=== PATIENT | female | born 1955 | race Caucasian/White ===

== ENCOUNTER → 2020-08-26 10:16 | Outpatient (CLI) | payer MEDICARE, OTHER, SELFPAY ==
--- NOTE | ~2020-08-26 | MM_ITS ---
EXAMINATION: MM screening gael BI w benton HISTORY: Screening TECHNIQUE: Craniocaudal and mediolateral oblique 3-D tomosynthesis images were obtained and synthetic 2-D images were generated. CAD analysis was submitted and interpreted. COMPARISON: . Comparison to multiple prior studies sequentially, with oldest reviewed study dated . BREAST PARENCHYMAL COMPOSITION: There are scattered areas of fibroglandular density. FINDINGS: There is no evidence of suspicious mass, calcification, or architectural distortion to sugg est malignancy in either breast. There has been no suspicious interval change. IMPRESSION: 1. No mammographic evidence of malignancy. 2. Recommend routine screening mammography in one year. BI-RADS Category 1: Negative Reviewed, dictated and finalized at location A. GE MECHANIC
== END ==
PROVIDERS: PCP Internal Medicine; Visit Provider Obstetrics & Gynecology
DX: Z12.31 Encounter for screening mammogram for malignant neoplasm of breast (principal)
CPT/HCPCS: 77063; 77067

== ENCOUNTER → 2021-08-30 10:14 | Outpatient (CLI) | payer MEDICARE, OTHER, SELFPAY ==
--- NOTE | ~2021-08-30 | MM_ITS ---
EXAMINATION: MM screening gael BI w benton HISTORY: Screening TECHNIQUE: Craniocaudal and mediolateral oblique 3-D tomosynthesis images were obtained and synthetic 2-D images were generated. CAD analysis was submitted and interpreted. COMPARISON: Comparison to multiple prior studies sequentially, with oldest reviewed study dated 08/10. BREAST PARENCHYMAL COMPOSITION: Breast composed of scattered areas of fibroglandular density. FINDINGS: There is no evidence of suspicious mass, calcification, or architectural distortion to sugg est malignancy in either breast. There has been no suspicious interval change. IMPRESSION: 1. No mammographic evidence of malignancy. 2. Recommend routine screening mammography in one year. BI-RADS Category 1: Negative Reviewed, dictated and finalized at location A. EMIC TUTOR
== END ==
PROVIDERS: PCP Internal Medicine; Visit Provider Advanced Practice Midwife
DX: Z12.31 Encounter for screening mammogram for malignant neoplasm of breast (principal)
CPT/HCPCS: 77063; 77067

== ENCOUNTER → 2021-09-29 10:00 | Outpatient (CLI) | payer MEDICARE, OTHER, SELFPAY ==
--- NOTE | ~2021-09-29 | DEXA_ITS ---
Bone Density Report Name: JYOTI ANDERSON Age: 66 Sex: Female Ethnicity: White Date of : 1955 Indication: postmenopausal; screening for osteoporosis; height loss; Referring Provider: Jen Malik Study: Bone densitometry was performed. Exam Date: September 29, 2021 Accession number: [id number] Bone Density: Region BMD T-score Z-score Classification AP Spine (L1-L4) 1.275 2.1 4.0 Normal Femoral Neck (Left) 0.726 -1.1 0.5 Osteopenia Total Hip (Left) 0.824 -1.0 0.4 Normal Femoral Neck (Right) 0.720 -1.2 0.5 Osteopenia Total Hip (Right) 0.883 -0.5 0.9 Normal Total Hip Mean 0.854 -0.8 0.7 Normal World Health Organization criteria for BMD impression classify patients as: Normal (T-score at or above -1.0), Osteopenia (T-score between -1.0 and -2.5), or Osteoporosis (T-score at or below -2.5). 10-year Fracture Risk(1): Major Osteoporotic Fracture 8.7% Hip Fracture 0.8% Reported Risk Factors: [place] (), Neck BMD=0.720, BMI=28.4 (1) FRAX(R) Version 3.08. Fracture probability calculated for an untreated patient. Fracture probability may be lower if the patient has received treatment. Previous Exams: Region Exam Age BMD T-score BMD Change BMD Change Date g/cm2 vs Baseline vs Previous AP Spine(L1-L4) 09/29/2021 66 1.275 2.1 0.076 0.118* 07/04/2014 59 1.157 1.0 -0.042 0.032* 04/20/2012 56 1.125 0.7 -0.074 0.066* 04/09/2010 54 1.059 0.1 -0.140 -0.081* 03/06/2007 51 1.140 0.8 -0.058 -0.058 02/15/2004 48 1.199 1.4 Total Hip(Left) 09/29/2021 66 0.824 -1.0 -0.179 -0.004 07/04/2014 59 0.829 -0.9 -0.175 -0.065* 04/20/2012 56 0.894 -0.4 -0.110 -0.012 04/09/2010 54 0.906 -0.3 -0.098 0.017 03/06/2007 51 0.888 -0.4 -0.115 -0.115 02/15/2004 48 1.003 0.5 Total Hip(Right) 09/29/2021 66 0.883 -0.5 -0.070 -0.014 07/04/2014 59 0.898 -0.4 -0.056 -0.009 04/20/2012 56 0.907 -0.3 -0.047 -0.033* 04/09/2010 54 0.940 0.0 -0.014 0.000 03/06/2007 51 0.940 0.0 -0.014 -0.014 02/15/2004 48 0.953 0.1 *Denotes significance at 95% confidence level, LSC for AP Spine = 0.022 g/cm2, LSC for Total Hip = 0.027 g/cm2 Clinical Information Provided by Patient:
== END ==
PROVIDERS: PCP Internal Medicine; Visit Provider Advanced Practice Midwife
DX: M81.0 Age-related osteoporosis without current pathological fracture (principal); M85.852 Other specified disorders of bone density and structure, left thigh; M85.851 Other specified disorders of bone density and structure, right thigh
CPT/HCPCS: 77080

== ENCOUNTER 2022-04-10 02:45 | Day surgery (SDC) | payer MEDICARE, OTHER, SELFPAY ==
[2022-03-28 12:20] VITALS: BMI 27.3
--- NOTE | 2022-04-07 15:29 | PM.HPGS ---
History of Present Illness History of Present Illness Consent: Risks, benefits, and alternatives have been discussed and questions answered. Patient agrees to proceed with procedure. Chief complaint: Family hx colon ca Narrative: Tigist Stein is a 66 year old female Referred for colon cancer screening. Her mother had colon cancer. Review of Systems Review of Systems: All systems reviewed & are unremarkable except as noted in HPI and below PMFSH Past Medical History Medical History Hyperlipidemia Family History Family History Father Depression Family history of chronic obstructive pulmonary disease Mother Family history of gastrointestinal disorder, Onset Age: 72 Family history of anemia, Onset Age: 72 Carcinoma of colon, Onset Age: 72 Social History Social History Smoking status: Never smoker Second hand tobacco smoke exposure: No Alcohol intake: current Drinks per week: 1 Substance use: never Substance use type: does not use Living arrangements: other Additional living arrangements comments: With Spouse Meds Home Medications and Allergies Home Medications Medication Instructions Recorded Confirmed Type calcium citrate 315 mg 1 tablet PO DAILY 10/02/19 04/10/22 History calcium-vitamin D3 6.25 mcg (250 unit) tablet (Citracal + Vitamin D Maximum) omega-3 fatty acids 1,000 mg 1,000 mg PO DAILY 10/02/19 04/10/22 History capsule simvastatin 20 mg tablet 20 mg PO DAILY #90 tabs 09/07/21 04/10/22 Rx cholecalciferol (vitamin D3) 25 25 mcg PO DAILY 10/10/21 04/10/22 History mcg (1,000 unit) capsule netarsudil 0.02 % eye drops 1 drp EACH EYE QPM 12/27/21 04/10/22 History (Rhopressa) triamcinolone acetonide 0.1 % 1 applic topical BID PRN Dry Skin 03/28/22 04/10/22 History topical cream Allergies Allergy/AdvReac Type Severity Reaction Status Date / Time Penicillins Allergy Severe RASH, HIVES Verified 04/10/22 08:02 red dye Allergy Severe HIVES/ITCHI Verified 04/10/22 08:02 NG Sulfa (Sulfonamide Allergy Severe RASH, HIVES Verified 04/10/22 08:02 Antibiotics) thimerosal Allergy Intermediate Other Verified 04/10/22 08:02 Exam Resp: Auscultation: clear to auscultation bilaterally Cardio: Rate: regular rate Rhythm: regular rhythm GI: GI Palp: Yes Soft to palpation and No Tenderness to palpation present (GI) Assessment and Plan Assessment and plan (1) Colon cancer screening: Code(s): Z12.11 - Encounter for screening for malignant neoplasm of colon Status: Acute Assessment and Plan: Colonoscopy with possible biopsy or polypectomy or cautery or injection of substances.
--- NOTE | 2022-04-10 07:46 | P.PNAN_ITS ---
Anes - Initial Pre Proc Eval Procedure: Operation Date: 04/10/22 09:00 Proposed Procedures p Screening Colonoscopy - Malick Ruiz MD Date/Time: 04/10/22 07:46 Surgeon: Malick Ruiz MD Pre Op Diagnosis: Family hx colon ca Patient Data Age: 66 Gender: F Height: 1.57 m Weight: 68 kg Allergies Allergy/AdvReac Type Severity Reaction Status Date / Time Penicillins Allergy Severe RASH, HIVES Verified 04/10/22 08:02 red dye Allergy Severe HIVES/ITCHI Verified 04/10/22 08:02 NG Sulfa (Sulfonamide Allergy Severe RASH, HIVES Verified 04/10/22 08:02 Antibiotics) thimerosal Allergy Intermediate Other Verified 04/10/22 08:02 Home Medications Medication Instructions Recorded Confirmed Type calcium citrate 315 mg 1 tablet PO DAILY 10/02/19 04/10/22 History calcium-vitamin D3 6.25 mcg (250 unit) tablet (Citracal + Vitamin D Maximum) omega-3 fatty acids 1,000 mg 1,000 mg PO DAILY 10/02/19 04/10/22 History capsule simvastatin 20 mg tablet 20 mg PO DAILY #90 tabs 09/07/21 04/10/22 Rx cholecalciferol (vitamin D3) 25 25 mcg PO DAILY 10/10/21 04/10/22 History mcg (1,000 unit) capsule netarsudil 0.02 % eye drops 1 drp EACH EYE QPM 12/27/21 04/10/22 History (Rhopressa) triamcinolone acetonide 0.1 % 1 applic topical BID PRN Dry Skin 03/28/22 04/10/22 History topical cream Patient hx anesthesia problems: none Family hx anesthesia problems: none Results Review: All pre-operative results and documents have been reviewed as part of the pre- operative evaluation. [facility] Past Medical History Medical History Hyperlipidemia Family History Family History Father Depression Family history of chronic obstructive pulmonary disease Mother Family history of gastrointestinal disorder, Onset Age: 72 Family history of anemia, Onset Age: 72 Carcinoma of colon, Onset Age: 72 Social History Social History Smoking status: Never smoker Second hand tobacco smoke exposure: No Alcohol intake: current Drinks per week: 1 Substance use: never Substance use type: does not use Living arrangements: other Additional living arrangements comments: With Spouse Du Jorge Final PreProcedure Day of Procedure 04/10/22 07:46 Patient weight: overweight Heart: regular rate and rhythm Lungs: clear to auscultation Airway: Mallampati scale class II Neurological: alert and oriented Last oral intake: >/= 8 hours ASA classification: II Emergent: no Anesthetic plan: proceed Anesthesia type and monitoring: general GIVS and standard monitoring Results Review: All pre-operative results and documents have been reviewed as part of the pre- operative evaluation. Informed Consent: The patient's anesthetic plan and its attendant risks and benefits were discussed with the patient/family/POA. Questions were solicited and answers provided to the satisfaction of the patient/family/POA.
[2022-04-10 08:03] VITALS: BP 114/69; PULSE 96; RESP 16; TEMP 36.3; O2SAT 98; BMI 27.3
[2022-04-10] MEDS: LACTATED RINGERS 1,000 ML 150 ML IV CONT (08:11)
[2022-04-10 09:17] VITALS: BP 97/63; PULSE 72; RESP 16; O2SAT 100
[2022-04-10 09:27] VITALS: BP 102/64; PULSE 67; RESP 16; O2SAT 99
[2022-04-10 09:36] VITALS: BP 112/68; PULSE 64; RESP 16; O2SAT 100
== END 2022-04-10 09:50 | disposition home or self-care (01) ==
PROVIDERS: PCP Internal Medicine; Visit Provider Internal Medicine Gastroenterology
PROC: 0DJD8ZZ Inspection of Lower Intestinal Tract, Via Natural or Artificial Opening Endoscopic (ICD-10-PCS; CPT 45378; principal; 2022-04-10 09:00)
DX: Z12.11 Encounter for screening for malignant neoplasm of colon (principal); Z80.0 Family history of malignant neoplasm of digestive organs; E78.5 Hyperlipidemia, unspecified
CPT/HCPCS: G0105; J2704; J7120

== ENCOUNTER → 2022-11-10 15:18 | Outpatient (CLI) | payer MEDICARE, OTHER, SELFPAY ==
--- NOTE | ~2022-11-10 | MM_ITS ---
EXAMINATION: MM screening gael BI w benton HISTORY: Screening mammogram TECHNIQUE: Craniocaudal and mediolateral oblique 3-D tomosynthesis images were obtained and synthetic 2-D images were generated. CAD analysis was submitted and interpreted. COMPARISON: August 30, 2021, August 26, 2020, August 08, 2019 bilateral screening mammogram examin ations BREAST PARENCHYMAL COMPOSITION: There are scattered areas of fibroglandular density. FINDINGS: There is no evidence of suspicious mass, calcification, or architectural distortion to sugg est malignancy in either breast. There has been no suspicious interval change. IMPRESSION: 1. No mammographic evidence of malignancy. 2. Recommend routine screening mammography in one year. BI-RADS Category 1: Negative Reviewed, dictated and finalized at location A.
== END ==
PROVIDERS: PCP Internal Medicine; Visit Provider Obstetrics & Gynecology
DX: Z12.31 Encounter for screening mammogram for malignant neoplasm of breast (principal)
CPT/HCPCS: 77063; 77067

== ENCOUNTER 2023-05-19 10:21 | Emergency (ER) | payer MEDICARE, OTHER, SELFPAY ==
--- NOTE | ~2023-05-19 | XR_ITS ---
XR hip RT min 2V 05/19/2023 11:51 Indication: Right hip pain Procedure: 3 views right hip Comparison: No prior studies for comparison. Findings: No fracture, subluxation or dislocation. No significant soft tissue abnormality. There is l oose body inferior to the joint space, likely degenerative. There is mild osteoarthritis of the right hip. Impression: 1: Mild osteoarthritis of the right hip. Reviewed, dictated and finalized at location A. Impression: 1: Mild osteoarthritis of the right hip.
--- NOTE | ~2023-05-19 | XR_ITS ---
XR lumbar spine 2-3V 05/19/2023 11:51 Indication: Low back pain Procedure: 3 views lumbar spine Comparison: No prior studies for comparison. Findings: There is levoscoliosis. There is disc narrowing at L3-4 through L5-S1. There is advanced fa cet hypertrophy at these levels. There is grade 1 spondylolisthesis at L5-S1. Sacral foramen are symm etric. Impression: 1: Severe lumbar spondylosis with levoscoliosis. Reviewed, dictated and finalized at location A. Impression: 1: Severe lumbar spondylosis with levoscoliosis.
[2023-05-19 10:46] VITALS: BP 106/65; PULSE 105; RESP 20; TEMP 36.4; O2SAT 99
--- NOTE | 2023-05-19 11:06 | ED.BACK ---
HPI - Back Pain/Injury General Chief Complaint: Back Pain/Injury Stated Complaint: Lower Back and Groin Pain Time Seen by Provider: 05/19/23 11:09 Source: patient Mode of arrival: ambulatory Limitations: no limitations History of Present Illness HPI Narrative: 67-year-old female presented for complaint of right low back and groin pain intermittently for 1 month. Denies known injury. She is active gardening and walking dogs but denies specific overuse. The pain to the groin and low back is not always concurrent. States today the pain was worse when trying to stand to put on her socks. Also cannot tolerate standing for long period of time. She denies pain radiating to the foot. She denies numbness, tingling, weakness of the extremity. Reports with size, heat, and going to the bathroom have improved the pain. Related Data Home Medications Medication Instructions Recorded Confirmed calcium citrate 315 mg 1 tablet PO DAILY 10/02/19 05/19/23 calcium-vitamin D3 6.25 mcg (250 unit) tablet (Citracal + Vitamin D Maximum) omega-3 fatty acids 1,000 mg 1,000 mg PO DAILY 10/02/19 05/19/23 capsule cholecalciferol (vitamin D3) 25 25 mcg PO DAILY 10/10/21 05/19/23 mcg (1,000 unit) capsule triamcinolone acetonide 0.1 % 1 applic topical BID PRN Dry Skin 03/28/22 05/19/23 topical cream latanoprost 0.005 % eye drops 1 drp EACH EYE DAILY 10/13/22 05/19/23 multivitamin 1 tablet PO DAILY 10/13/22 05/19/23 brimonidine 0.15 % eye drops 2 drp EACH EYE DAILY 05/19/23 05/19/23 (Alphagan P) Allergies Allergy/AdvReac Type Severity Reaction Status Date / Time Penicillins AdvReac Mild RASH, HIVES Verified 05/19/23 10:34 red dye AdvReac Mild HIVES/ITCHI Verified 05/19/23 10:34 NG Sulfa (Sulfonamide AdvReac Mild RASH, HIVES Verified 05/19/23 10:34 Antibiotics) thimerosal AdvReac Mild Itching Verified 05/19/23 10:34 Review of Systems Review of Systems: CONSTITUTIONAL: Denies body aches, fever, chills EYES: Denies visual changes CARDIOVASCULAR: Denies chest pain, palpitations, or edema. RESPIRATORY: Denies cough or dyspnea. GASTROINTESTINAL: Denies abdominal pain, nausea, vomiting, or diarrhea. SKIN: Denies rash, itching, or wounds. MUSCULOSKELETAL: reports back pain NEUROLOGIC: Denies headache, numbness, tingling, or weakness. All systems reviewed & are unremarkable except as noted in HPI and below PMFSH Past Medical History Medical History Hyperlipidemia Family History Family History Father Depression Family history of chronic obstructive pulmonary disease Mother Family history of gastrointestinal disorder, Onset Age: 72 Family history of anemia, Onset Age: 72 Carcinoma of colon, Onset Age: 71 Social History Social History Smoking status: Never smoker Second hand tobacco smoke exposure: No Alcohol intake: current Drinks per week: 1 Substance use: never Substance use type: does not use Lack of Transportation: No Lack of Food: Never True Current Housing: I Have Housing Concerned About Future Housing: No Difficulty Paying Gas/Electric Bills: No Difficulty Paying for Meds: No Currently Unemployed: No Education: Master's Degree or Higher Difficulty w/ Childcare or Family Care: No Living arrangements: other Additional living arrangements comments: With Spouse Comments At time of signature, I have reviewed and agree with nursing past medical, surgical, social and family history unless otherwise noted. Please see nursing chart for further information. There is no relevant family history pertinent to the presenting complaint Exam Narrative: GENERAL: Well-appearing, and in no acute distress. NECK: Supple. full ROM CHEST: Speaks in full sentences. No respiratory distress. HEART: Regular
== END 2023-05-19 12:20 | disposition home or self-care (01) ==
PROVIDERS: Emergency Provider Nurse Practitioner Family; PCP Internal Medicine
DX: M54.50 Low back pain, unspecified (principal); E78.5 Hyperlipidemia, unspecified
CPT/HCPCS: 72100; 73502; 99214; G0463

== ENCOUNTER 2023-05-27 20:55 | Emergency (ER) | payer MEDICARE, OTHER, SELFPAY ==
--- NOTE | ~2023-05-27 | CT_ITS ---
EXAMINATION: CT lumbar spine wo con DATE: 05/27/2023 22:35 INDICATION: Low back pain. TECHNIQUE: Computed tomography (CT) of the lumbar spine was performed without intravenous contrast. A utomated exposure control and iterative reconstruction technique were employed. The dose-length produ ct was 766.20 mGy-cm. COMPARISON: Lumbar spine radiographs 05/19/23 FINDINGS: There is 10 degrees levoscoliosis of lumbar spine. L5 is a transitional segment. There is 3 mm anterolisthesis of L3 on L4 and 6 mm anterolisthesis of L4 on L5. Vertebral body heights are norm al. There is mildly decreased disc height at L1-L2, severely decreased disc height at L2-L3 and L3-L4 , moderately decreased disc height at L4-L5. The following disc levels are specifically discussed: L1-L2: The disc is bulging. There is severe right and moderate left facet joint osteoarthritis. There is moderate right and mild left neural foraminal stenosis. There is mild central canal stenosis. L2-L3: The disc is bulging. There is severe bilateral facet joint osteoarthritis. There is moderate r ight and mild left neural foraminal stenosis. There is mild central canal stenosis. L3-L4: The disc is bulging. There is severe bilateral facet joint osteoarthritis. There is moderate b ilateral neural foraminal stenosis. There is moderate central canal stenosis. L4-L5: This is bulging. There is severe bilateral facet joint osteoarthritis. There is mild bilateral neural foraminal stenosis. There is mild central canal stenosis. L5-S1: The disc does not extend beyond the endplate margin. There is mild bilateral facet joint hyper trophy. There is no neural foraminal stenosis. There is no central canal stenosis. IMPRESSION: 1. Severe lumbar spondylosis. 2. Lumbar levoscoliosis. Reviewed, dictated and finalized at location E.
[2023-05-27 21:03] VITALS: BP 150/89; PULSE 117; RESP 20; TEMP 36.4; O2SAT 97
--- NOTE | 2023-05-27 22:20 | ED.EXTPRO ---
HPI - Extremity Problem General Chief complaint: Extremity Problem,Nontraumatic Stated complaint: Right left leg pain Time Seen by Provider: 05/27/23 21:10 History of Present Illness HPI Narrative: Patient presents to the emergency department with her with severe right low back pain that radiates into the anterior aspect of her right leg. She has a history of right low back pain but nothing this severe. Pain became worse and radiating down last week. Was seen at urgent care and started on Flexeril. Patient has been out of Flexeril for the past couple days. It was helping. Tonight pain is severe and she can barely sit. Denies right leg weakness but it is difficult to ambulate when pain is severe. Also denies any urinary or stool incontinence. X-rays from urgent care read by myself and show spondylosis without any signs of fracture. She denies any fevers and had single episode of chills yesterday when switching from heating pad to bed Related Data Home Medications Medication Instructions Recorded Confirmed calcium citrate 315 mg 1 tablet PO DAILY 10/02/19 05/19/23 calcium-vitamin D3 6.25 mcg (250 unit) tablet (Citracal + Vitamin D Maximum) omega-3 fatty acids 1,000 mg 1,000 mg PO DAILY 10/02/19 05/19/23 capsule cholecalciferol (vitamin D3) 25 25 mcg PO DAILY 10/10/21 05/19/23 mcg (1,000 unit) capsule triamcinolone acetonide 0.1 % 1 applic topical BID PRN Dry Skin 03/28/22 05/19/23 topical cream latanoprost 0.005 % eye drops 1 drp EACH EYE DAILY 10/13/22 05/19/23 multivitamin 1 tablet PO DAILY 10/13/22 05/19/23 brimonidine 0.15 % eye drops 2 drp EACH EYE DAILY 05/19/23 05/19/23 (Alphagan P) Allergies Allergy/AdvReac Type Severity Reaction Status Date / Time Penicillins AdvReac Mild RASH, HIVES Verified 05/27/23 21:08 red dye AdvReac Mild HIVES/ITCHI Verified 05/27/23 21:08 NG Sulfa (Sulfonamide AdvReac Mild RASH, HIVES Verified 05/27/23 21:08 Antibiotics) thimerosal AdvReac Mild Itching Verified 05/27/23 21:08 Review of Systems Review of Systems: Review of systems negative except what is documented in the [facility] Past Medical History Medical History Hyperlipidemia Family History Family History Father Depression Family history of chronic obstructive pulmonary disease Mother Family history of gastrointestinal disorder, Onset Age: 72 Family history of anemia, Onset Age: 72 Carcinoma of colon, Onset Age: 71 Social History Social History Smoking status: Never smoker Second hand tobacco smoke exposure: No Alcohol intake: current Drinks per week: 1 Substance use: never Substance use type: does not use Lack of Transportation: No Lack of Food: Never True Current Housing: I Have Housing Concerned About Future Housing: No Difficulty Paying Gas/Electric Bills: No Difficulty Paying for Meds: No Currently Unemployed: No Education: Master's Degree or Higher Difficulty w/ Childcare or Family Care: No Living arrangements: other Additional living arrangements comments: With Spouse Exam Narrative: GENERAL: Well-appearing, well-nourished, and in no acute distress. Patient develops acute pain with movement HEAD: Normocephalic, atraumatic. ENT: Nares clear, no rhinorrhea or epistaxis. Mucous membranes moist. NECK: Normal ROM CHEST: No respiratory distress. EXTREMITIES: Normal range of motion - decreased range of motion right leg due to pain after pain medication -strength 5/5 bilateral lower extremities SKIN: Warm, dry, no rash. NEURO: No focal deficits. Alert and oriented x3. PSYCH: Normal mood and affect. Course Vital Signs Vital signs: Vital Signs Temperature 36.4 C 05/27/23 21:03 Pulse Rate 117 H 05/27/23 21:03 Respiratory Rate 20
[2023-05-27] MEDS: HYDROcodone/acetaminophen (*CRX) 5-325 MG TABLET 1 TAB PO (22:43)
[2023-05-27] MEDS: CYCLOBENZAPRINE HCL 10 MG TABLET PO (22:44)
[2023-05-27] MEDS: KETOROLAC 30 MG/ML VIAL (*BKC) IM (22:44)
== END 2023-05-28 00:37 | disposition home or self-care (01) ==
PROVIDERS: Emergency Provider Emergency Medicine; PCP Internal Medicine
DX: M43.16 Spondylolisthesis, lumbar region (principal); M54.41 Lumbago with sciatica, right side; E78.5 Hyperlipidemia, unspecified
CPT/HCPCS: 72131; 96372; 99284; A9270; J1885

== ENCOUNTER 2023-06-07 15:21 | Outpatient (CLI) | payer MEDICARE, OTHER, SELFPAY ==
--- NOTE | ~2023-06-07 | MR_ITS ---
EXAMINATION: MR lumbar spine wo con DATE: 06/07/2023 16:14 INDICATION: Back pain. TECHNIQUE: Magnetic resonance imaging (MRI) of the lumbar spine was performed without intravenous con trast. COMPARISON: Lumbar spine CT 05/27/2023 FINDINGS: There is 10 degrees levoscoliosis of lumbar spine. There is 3 mm anterolisthesis of L4 on L 5 and 6 mm anterolisthesis of L5 on S1. Vertebral body heights are normal. There is severely decrease d disc height at L3-L4 and L4-L5 and moderately decreased disc height at L5-S1. The distal spinal cor d signal intensity is normal. The conus medullaris is at L1. The following disc levels are specifical ly discussed: L1-L2: There is a central protrusion. There is moderate bilateral facet joint osteoarthritis. There i s no neural foraminal stenosis. There is mild central canal stenosis. L2-L3: The disc is bulging. There is severe bilateral facet joint osteoarthritis. There is moderate r ight and mild left neural foraminal stenosis. There is mild central canal stenosis. L3-L4: The disc is bulging. There is severe bilateral facet joint osteoarthritis. There is moderate r ight and mild left neural foraminal stenosis. There is mild central canal stenosis. L4-L5: The disc is bulging. There is severe bilateral facet joint osteoarthritis. There is mild bilat eral neural foraminal stenosis. There is moderate central canal stenosis. L5-S1: The disc is bulging and has an annular fissure. There is severe bilateral facet joint osteoart hritis. There is mild bilateral neural foraminal stenosis. There is no central canal stenosis. IMPRESSION: 1. Severe lumbar spondylosis, stable from 05/27/2023. 2. Lumbar levoscoliosis. Reviewed, dictated and finalized at location E. 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
== END 2023-06-07 15:22 | disposition home or self-care (01) ==
PROVIDERS: PCP Internal Medicine; Visit Provider Physician Assistant
DX: M54.9 Dorsalgia, unspecified (principal); M47.896 Other spondylosis, lumbar region
CPT/HCPCS: 72148

== ENCOUNTER 2023-11-14 13:50 | Outpatient (CLI) | payer MEDICARE, OTHER, SELFPAY ==
--- NOTE | ~2023-11-14 | MM_ITS ---
EXAMINATION: MM screening gael BI w benton HISTORY: Screening TECHNIQUE: Craniocaudal and mediolateral oblique 3-D tomosynthesis images were obtained and synthetic 2-D images were generated. CAD analysis was submitted and interpreted. COMPARISON: Comparison to multiple prior studies sequentially, with oldest reviewed study dated 11/10. BREAST PARENCHYMAL COMPOSITION: Not dense: There are scattered areas of fibroglandular density. FINDINGS: There is no evidence of suspicious mass, calcification, or architectural distortion to sugg est malignancy in either breast. There has been no suspicious interval change. IMPRESSION: 1. No mammographic evidence of malignancy. 2. Recommend routine screening mammography in one year. BI-RADS Category 1: Negative Reviewed, dictated and finalized at location B.
== END 2023-11-14 13:51 ==
LOC: MICIMG 13:51
PROVIDERS: PCP Nurse Practitioner Obstetrics & Gynecology; Visit Provider Nurse Practitioner Obstetrics & Gynecology
DX: Z12.31 Encounter for screening mammogram for malignant neoplasm of breast (principal)
CPT/HCPCS: 77063; 77067

== ENCOUNTER 2024-02-11 11:53 | Emergency (ER) | payer MEDICARE, OTHER, SELFPAY ==
[2024-02-11 12:03] VITALS: BP 106/59; PULSE 90; RESP 18; TEMP 36.7; O2SAT 98
--- NOTE | 2024-02-11 12:13 | ED.GENADULT ---
HPI - General Adult General Chief complaint: Dental/Oral Stated complaint: ?Thrush Time Seen by Provider: 02/11/24 12:13 Source: patient Mode of arrival: ambulatory Limitations: no limitations History of Present Illness HPI narrative: 68-year-old female presents with complaint of soreness, white patches to tongue for 1 week. Patient states she was on 50 mg doxycycline daily for 3 months for ocular rosacea. States that she stopped antibiotic due to diarrhea and shortly after started to notice symptoms to tongue. Is concerned for oral thrush. All systems reviewed and negative except as noted above. Related Data Home Medications Medication Instructions Recorded Confirmed calcium citrate 315 mg 1 tablet PO DAILY 10/02/19 10/19/23 calcium-vitamin D3 6.25 mcg (250 unit) tablet (Citracal + Vitamin D Maximum) latanoprost 0.005 % eye drops 1 drp EACH EYE DAILY 10/13/22 10/19/23 multivitamin 1 tablet PO DAILY 10/13/22 10/19/23 brimonidine 0.15 % eye drops 2 drp EACH EYE DAILY 05/19/23 10/19/23 (Alphagan P) omega-3 fatty acids 1,000 mg 1,200 mg PO DAILY 05/30/23 10/19/23 capsule Allergies Allergy/AdvReac Type Severity Reaction Status Date / Time cyclobenzaprine AdvReac Mild Blister Verified 10/19/23 08:10 Penicillins AdvReac Mild RASH, HIVES Verified 10/19/23 08:10 red dye AdvReac Mild HIVES/ITCHI Verified 10/19/23 08:10 NG Sulfa (Sulfonamide AdvReac Mild RASH, HIVES Verified 10/19/23 08:10 Antibiotics) thimerosal AdvReac Mild Itching Verified 10/19/23 08:10 Review of Systems Review of Systems: CONSTITUTIONAL: Denies fever, chills, or sweats. EYES: Denies visual changes, redness, or discharge. ENT: Denies rhinorrhea, congestion, sore throat, or otalgia. Reports soreness and white patches to tongue. CARDIOVASCULAR: Denies chest pain, palpitations, or edema. RESPIRATORY: Denies cough or dyspnea. GASTROINTESTINAL: Denies abdominal pain, nausea, vomiting, or diarrhea. GENITOURINARY: Denies dysuria or hematuria. SKIN: Denies rash or itching. MUSCULOSKELETAL: Denies back pain, joint pain, or myalgia. NEUROLOGIC: Denies headache, numbness, or weakness. PSYCHIATRIC: Denies anxiety or depression. All other systems reviewed are negative, except as documented in HPI. PMFSH Past Medical History Medical History Hyperlipidemia Family History Family History Father Depression Family history of chronic obstructive pulmonary disease Mother Family history of gastrointestinal disorder, Onset Age: 72 Family history of anemia, Onset Age: 72 Carcinoma of colon, Onset Age: 72 Social History Social History Smoking status: Never smoker Second hand tobacco smoke exposure: No Alcohol intake: current Drinks per week: 1 Substance use: never Substance use type: does not use Lack of Transportation: No Lack of Food: Never True Current Housing: I Have Housing Concerned About Future Housing: No Difficulty Paying Gas/Electric Bills: No Difficulty Paying for Meds: No Currently Unemployed: No Education: Master's Degree or Higher Difficulty w/ Childcare or Family Care: No Living arrangements: other Additional living arrangements comments: With Spouse Comments At time of signature, agree with nursing past medical, surgical, social and family history. There is no relevant family history pertinent to the presenting complaint. Exam Narrative: GENERAL: This is a well-nourished, well-developed patient, in no apparent distress. HEAD: normocephalic, atraumatic. EYES: PERRL. Sclera clear/white. Vision is grossly intact. EARS: External ears normal NOSE: External nose normal MOUTH: erythema to tongue. no swelling. mild whitish-yellow plaques NECK: Neck supple, non-tender without lymphadenopathy, masses or thyromega
== END 2024-02-11 12:30 | disposition home or self-care (01) ==
PROVIDERS: Emergency Provider Nurse Practitioner Family
DX: B37.0 Candidal stomatitis (principal); E78.5 Hyperlipidemia, unspecified
CPT/HCPCS: 99213; G0463

== ENCOUNTER 2024-11-18 07:53 | Outpatient (CLI) | payer MEDICARE, OTHER, SELFPAY ==
--- NOTE | 2024-11-18 08:41 | ECG_ITS ---
Test Date: 2024-11-18 08:56:45 Measurements Intervals [place] Rate: 63 P: 66 AR: 211 QRS: -16 QRSD: 97 T: 41 QT: 375 QTc: 386 Interpretive Statements SINUS RHYTHM WITH FIRST DEGREE AV BLOCK LOW QRS VOLTAGE IN PRECORDIAL LEADS BORDERLINE ECG No previous ECG available for comparison Electronically Signed On 11-18-2024 09:00:54 CDT by Bharat Morfin D.O.
[2024-11-18 09:07] LABS: Basophils Absolute Auto 0.1 K/mm3 (0.0-0.1); Basophils Percent Auto 1.4 % (0.2-1.2); Eosinophils Absolute Auto 0.1 K/mm3 (0-0.3); Eosinophils Percent Auto 1.4 % (0-4.4); Hematocrit 44.2 % (37.0-47.0); Hemoglobin 14.1 g/dL (12.0-15.0); Immature Granulocyte Absolute 0.02 K/mm3 (0.00-0.031); Immature Granulocyte Percent A 0.5 % (0-0.5); Lymphocytes Absolute Auto 0.86 K/mm3 (0.9-3.2); Mean Corpuscular HGB Conc 31.9 g/dl (32-36); Mean Corpuscular Hemoglobin 29.7 pg (26-34); Mean Corpuscular Volume 93.1 fl (80-100); Mean Platelet Volume 9.2 fl (7.4-10.4); Monocytes Absolute Auto 0.4 K/mm3 (0.1-0.6); Monocytes Percent Auto 9.1 % (2.6-8.5); Neutrophils Absolute Auto 2.9 K/mm3 (1.3-6.7); Neutrophils Percent Auto 67.6 % (45.5-73.1); Platelet Count Result 246 k/mm3 (150-375); Red Blood Count 4.75 M/mm3 (4.2-5.4); White Blood Count 4.3 K/mm3 (4.5-10.0)
[2024-11-18 09:18] LABS: Prothrombin Time 13.9 Seconds (11.1-14.7)
[2024-11-18 09:19] LABS: Partial Thromboplastin Time 29.3 Seconds (22.3-36.8)
[2024-11-18 09:21] LABS: Alanine Aminotransferase 30 U/L (6-35); Albumin Level 4.6 g/dL (3.5-5.1); Alkaline Phosphatase 81 U/L (38-126); Anion Gap 11 mmol/L (4-12); Aspartate Amino Transferase 33 U/L (14-36); Bilirubin,Total 0.6 mg/dL (0.2-1.3); Blood Urea Nitrogen 20 mg/dL (7-17); Calcium 9.2 mg/dL (8.4-10.2); Carbon Dioxide 25 mmol/L (22-30); Chloride 103 mmol/L (98-107); Estimated Glomerular Filt Rate > 60; Glucose 94 mg/dL (65-110); Sodium 139 mmol/L (137-145)
== END 2024-11-18 07:54 | disposition home or self-care (01) ==
LOC: ANHSURGERY 07:56
PROVIDERS: PCP Internal Medicine; Visit Provider Urology
DX: N81.3 Complete uterovaginal prolapse (principal); E78.5 Hyperlipidemia, unspecified; Z01.818 Encounter for other preprocedural examination
CPT/HCPCS: 36415; 80053; 85025; 85610; 85730; 86850; 86900; 86901; 93005

== ENCOUNTER 2024-12-01 01:44 | Day surgery (SDC) | payer MEDICARE, OTHER, SELFPAY ==
[2024-11-18 08:07] VITALS: BP 105/68; PULSE 69; RESP 16; TEMP 36.5; O2SAT 99; BMI 28.4
--- NOTE | 2024-11-18 08:28 | PC.NURSE ---
Report to the Outpatient Waiting Room, entrance under the green pavilion located off [facility], at time _0600am on date _12/01/24 . Planned Procedure Time: _0730am .? Time changes happen often and if your time is changed the preop area will call you the afternoon before. - You and your visitor will be asked to self-screen and do not enter if you have any COVID symptoms. Please call surgeon if you need to reschedule. - A mask is optional within the hospital at this time. Patients may have clear liquids (water, carbonated beverages, clear teas, apple juice) until 3 hours prior to surgery with a maximum of 20 ounces. - No food from midnight until time of surgery and no smoking, or chewing tobacco (or any form of nicotine). No chewing gum, candy or mints. ( 0430am) Take only the following medications with a SIP of water on the morning of surgery: ____ Eye Gtts as scheduled DO NOT STOP ANY OF YOUR OTHER PRESCRIPTION MEDICATIONS PRIOR TO SURGERY EXCEPT THE FOLLOWING Hold all vitamins,NSAIDS, Aspirin and any OTC supplements for [address] Ramirez . Date to take last dose 11/23/24 Please no make-up, nail dominican, hairspray, perfume, deodorant, or body powder the day of surgery.? No jewelry (including any body piercings) or valuables the day of surgery, leave them at home.? Please take a shower or bath the night before, or the morning of, surgery with an antibacterial soap.? Wear comfortable, loose fitting clothing.? Bring overnight bag , cell phone clinical laboratory aides teacher..if needed - Jewelry must be removed prior to entering the operating room.? Rings and piercings that are not removed may be cut off. - The hospital will not accept responsibility for valuables.? - Please leave all valuables, including medications, at home the day of surgery. If you are going home after surgery, a licensed taxi driver supervisor must drive you home.? - NO public transportation without another adult if you receive anesthesia. - We recommend that an adult stay with you for 24 hours following discharge. - We also recommend that you do not drive, make important decision, drink alcoholic beverages, or take any drugs that were not prescribed by your health care provider for at least 24 hours after your discharge time. Follow any additional instructions given to you from your surgeon. Telephone instructions given to __Patient and asked if any additional questions and then verbalized understanding. Patient advised to call surgeon office or pre surgery nurse liaison [phone] if any additional questions.
--- NOTE | 2024-11-28 11:57 | PM.IMHP ---
H&P: HPI History of Present Illness Date/Time: 11/28/24 11:57 Chief Complaint: Prolapse Narrative: Pelvic organ prolapse and stress incontinence on urodynamics Review of Systems Review of Systems: All systems reviewed & are unremarkable except as noted in HPI and below PMFSH Past Medical History Medical History Cystocele Predislocation syndrome of metatarsophalangeal joint Mucous cyst of toe Family hx of colon cancer Dizziness and giddiness Dietary counseling and surveillance (09/11/16) Adult general medical examination Hyperlipidemia Family History Family History Father Depression Family history of chronic obstructive pulmonary disease Mother Family history of gastrointestinal disorder, Onset Age: 72 Family history of anemia, Onset Age: 72 Carcinoma of colon, Onset Age: 72 Sibling Diabetes mellitus Narcolepsy Social History Social History Smoking status: Never smoker Second hand tobacco smoke exposure: Yes Alcohol intake: current Drinks per week: 1 Alcohol use details: 1 per 3 mos Substance use: never Substance use type: does not use Do You Feel Safe in your Home?: Yes Lack of Transportation: No Lack of Food: Never True Current Housing: I Have Housing Concerned About Future Housing: No Difficulty Paying Gas/Electric Bills: No Difficulty Paying for Meds: No Currently Unemployed: No Education: Master's Degree or Higher Difficulty w/ Childcare or Family Care: No Living arrangements: with family Additional living arrangements comments: 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 Gender identity (if verbalized by the patient): Female Spiritual care concerns: No Meds Home Medications and Allergies Home Medications ?Medication ?Instructions ?Recorded ?Confirmed ?Type calcium 315 mg (as 1 tablet PO DAILY 10/02/19 11/18/24 History citrate)-vitamin D3 6.25 mcg (250 unit) tablet (Citracal + Vitamin D Maximum) latanoprost 0.005 % eye drops 1 drp EACH EYE DAILY 10/13/22 11/18/24 History brimonidine 0.15 % eye drops 2 drp EACH EYE DAILY 05/19/23 11/18/24 History (Alphagan P) omega-3 fatty acids 1,000 mg 1,200 mg PO DAILY 05/30/23 11/18/24 History capsule sodium chloride 1,000 mg soluble 1,000 mg PO DAILY #30 tabs 04/10/24 11/18/24 Rx tablet simvastatin 20 mg tablet 20 mg PO DAILY #90 tabs 10/22/24 11/18/24 Rx Allergies Allergy/AdvReac Type Severity Reaction Status Date / Time acetaminophen Allergy Severe hives Verified 11/18/24 08:03 ampicillin Allergy Intermediate rash Verified 11/18/24 08:03 ibuprofen (From Advil) AdvReac Intermediate Rash Verified 11/18/24 08:03 cyclobenzaprine AdvReac Mild Blister Verified 11/18/24 08:03 Penicillins AdvReac Mild RASH, HIVES Verified 11/18/24 08:03 red dye AdvReac Mild HIVES/ITCHI Verified 11/18/24 08:03 NG Sulfa (Sulfonamide AdvReac Mild RASH, HIVES Verified 11/18/24 08:03 Antibiotics) thimerosal AdvReac Mild Itching Verified 11/18/24 08:03 Exam Narrative: Cystocele plus to loss of apical support at 0 Urethral mobility Assessment and Plan Assessment and plan (1) Uterine prolapse: Code(s): N81.4 - Uterovaginal prolapse, unspecified Status: Acute (2) JANUARY (stress urinary incontinence, female): Code(s): N39.3 - Stress incontinence (female) (male) Status: Acute Plan Robotic sacral colpopexy. Risks, benefits, alternatives outlined in office chart
[2024-12-01] VITALS (10 sets, daily range): BP systolic 103–126; BP diastolic 53–80; PULSE 72–93; RESP 14–20; TEMP 36.1–36.8; O2SAT 1–100
--- OUTSIDE RECORDS SUMMARY | 2024-12-01 01:51 | XMS_ITS | Data Portability ---
Author Organization [facility] Address [address] [place] [address] Care Team Providers Care Wire Galvanizer Name Role Phone ROSSI MCLEOD Primary Care Provider [phone] GORAN SIU Primary Care Provider [phone] Assessment Encounter Date Assessment Date Assessment LastModified by Organization Details LastModified Time 06/27/2021 06/27/2021 Pt will be seeing pcp in september. Will set up 5 year colonoscopy and do yearly labs at that time. Will see derm for mole on her back. [email or web address] Not available 06/27/2021 12:29:51 02/23/2022 02/23/2022 Dietary and exercise pt well versed treated for osteoporosis plan to repeat vitamin d in winter months (july) [email or web address] Not available 11/20/2022 19:49:45 07/03/2023 07/03/2023 Annual gynecological exam performed. Patient will come back in a year unless there are new symptoms. Not available 07/03/2023 10:26:24 Plan of Treatment Reminders Order Date Submit Date Provider Last Modified By Organization Details Last Modified Time Details Appointments SURG Total Lap Hyst 2024 07:30A Reji CONTRERAS MD Not available Not available Not available SURG POST OP 2024 11:00A Reji CONTRERAS MD Not available Not available Not available Lab None recorded. Referral None recorded. Procedures None recorded. Surgeries laparosco pic supracerv ical hysterect alda w/bilater al salpingo- oopherect alda, robot assisted (SURG) 2024 025 [id number], [address], [place], [address], 11/10/2024 12:34:10 Imaging MAMMO, screening , bilateral 2022 023 [facility], [address], [place], [address], 07/10/2023 18:14:06 Medication Orders None recorded. Patient TargetsNo targets recorded. Patient InstructionsNo instructions recorded. Reason for Referral None Reported. Results Created Date Observation Date Name Description Value Unit Range Abnormal Flag Note LastModifiedBy Organization Detail LastModifiedTime 06/27/2006/27/2021 IMAGE GUIDE D PAP AND HPV REGAR DLESS image guided Pap, HPV regardless of Pap result SEE RESULT S BELOW CASE REPOR T: Cytol ogy Gynec ologi gorge Repor t Case: [id number] Autho samantha howard Provi jorge: Jen Barahona, KATIE Colle cted: 06/27 1432 Order ing Locat ion: [place] [facility] Recei juan: 06/28 0035 First Scree n: Sabina Muro , CT Speci men: Andrew agee Pap - Image d, Cervi x STATE MENT OF ADEQU ACY: Satis facto ry for evalu ation Trans forma tion zone compo nent prese nt FINAL DIAGN OSIS: Negat deyanira for Intra epith elial Bruce eldridge or Gerry cho (NIL) . Elect mario james craig d by Sabina Muro , CT on 2020 at 12:26 PM ----- ----- ----- ----- ----- ----- ----- ----- ----- ----- ----- ----- ----- ----- ----- ----- ----- ---- HPV RESUL TS: HPV mRNA E6/E7 : No HPV mRNA Detec christofer NOTE: This high risk HPV mRNA assay detec ts fourt een high- risk HPV types (16, 18, 31, 33, 35, 39, 45, 51, 52, 56, 58, 59, 66, 68) witho ut diffe renti ation . COMME NT: Note: This speci men was revie wed by a Cytot echno logis t and/o r Patho logis t (as indic ated in this repor t) after evalu ation using the Thinp rep Imagi ng Syste m. CLINI GORGE INFOR MATIO N: Menst rual Statu s: LMP (if appli cable ): Clini gorge Histo ry/Pr eviou s Pap: Type of Neopl indio (if appli cable ): Signi fican t Clini gorge Findi ngs: Other Histo ry: Hormo nathalia (if appli cable ): PAP EDUCA CEICL L NOTE: The Pap Test is a scree cyndie test with an inher ent false negat deyanira rate. Liqui d-bas e sampl ing may decre ase, but will not elimi shun, false negat deyanira resul ts. A negat deyanira resul t does not precl ude the prese nce and/o r devel opmen t of disea se, since the prese nce of abnor mal cells in the sampl e depen ds on the locat ion of the lesio n and sampl ing techn ique. Jj nued regul ar scree cyndie is the best metho d of cance r preve ntion . If repor christofer cytol ogic findi ng do not corre late with physi gorge and/o r histo rical findi ngs, furth er inves tigat ion is recom roberto d, as clini rashid warra nted. Not Available [facility] (Lab) [address], [place], [address], 07/03/2021 13:29:17 07/03/20 23 07/03/2023 IMAGE GUIDE D PAP AND HPV REGAR DLESS image guided Pap, HPV regardless of Pap result SEE RESULT S BELOW CASE REPOR T: Cytol ogy Gynec ologi gorge Repor t Case: [id number] Autho samantha howard Provi jorge: Unique hamilton , Rosalia Cortez cted: 07/03 1530 [employer] Order ing Locat ion: [place] Patho adina Recei juan: 07/04 0222 First Scree n: Tamia Eller ica Speci men: Scree cyndie Pap - Image d, Cervi x STATE MENT OF ADEQU ACY: Satis facto ry for evalu ation Trans forma tion zone compo nent prese nt FINAL DIAGN OSIS: Negat deyanira for Intra epith elial Bruce eldridge or Gerry cho (NIL) . Elect marichuygeovanny james craig d by Tamia Eller ica on 2022 at 1:52 PM ----- ----- ----- ----- ----- ----- ----- ----- ----- ----- ----- ----- ----- ----- ----- ----- ----- ---- HPV RESUL TS: HPV mRNA E6/E7 : No HPV mRNA Detec christofer NOTE: This high risk HPV mRNA assay detec ts fourt een high- risk HPV types (16, 18, 31, 33, 35, 39, 45, 51, 52, 56, 58, 59, 66, 68) witho ut diffe renti ation . COMME NT: This speci men was revie wed by a Cytot echno logis t and/o r Patho logis t (as indic ated in this repor t) after evalu ation using the Thinp rep Imagi ng Syste m. CLINI GORGE INFOR MATIO N: Menst rual Statu s: LMP (if appli cable ): Clini gorge Histo ry/Pr eviou s Pap: Type of Neopl indio (if appli cable ): Signi fican t Clini gorge Findi ngs: Other Histo ry: Hormo nathalia (if appli cable ): PAP EDUCA CECIL L NOTE: The Pap Test is a scree cyndie test with an inher ent false negat deyanira rate. Liqui d-bas ed sampl ing may decre ase, but will not elimi shun, false negat deyanira resul ts. A negat deyanira resul t does not precl ude the prese nce and/o r devel opmen t of disea se, since the prese nce of abnor mal cells in the sampl e depen ds on the locat ion of the lesio n and sampl ing techn ique. Jj nued regul ar scree cyndie is the best metho d of cance r preve ntion . If repor christofer cytol ogic findi ng do not corre late with physi gorge and/o r histo rical findi ngs, furth er inves tigat ion is recom roberto d, as clini rashid spencer nted. Not Available [facility] ([facility]) [address], [place], [address], 07/05/2023 14:56:41 08/30/19 22 08/30/2021 MAMMO , scree cyndie, digit al, bilat eral No observ ation record ed. [facility] [address], [place], [address], 09/03/2021 11:04:28 09/30/19 22 09/29/2021 DEXA No observ ation record ed. [facility] [address], [place], [address], 10/26/2021 11:27:10 11/11/19 23 11/10/2022 MAMMO , scree cyndie, bilat eral No observ ation record ed. [email or web address] [facility] [address], [place], [address], 07/03/2023 14:53:09 11/14/19 24 11/14/2023 MAMMO , scree cyndie, bilat eral No observ ation record ed. [facility] [address], [place], [address], 11/24/2023 11:24:05 Result Notes None recorded. Problems Name Problem SNOMED Code Status Onset Date Resolution Date Notes Provider Name and Address Organization Details Recorded Time SNOMED CT Concept Completed 201506/22/2021 Encntr for general adult medical exam w/o abnormal findings ;Practic e ID: [id number] Rahel hopson [facility] 17:06:[address] Concept Completed 201506/22/2021 Encntr for nurse midwife exam (general ) (routine ) w/o abn findings ;Practic e ID: 0001 Rahel hopson [facility] 17:06:13 Screenin g for malignan t neoplasm of rectum Completed 201506/22/2021 Encounte r for screenin g for malignan t neoplasm of rectum;P ractice ID: [id number] Rahel hopson [facility] 17:06:07 Screenin g for malignan t neoplasm of cervix Completed 201806/22/2021 Encounte r for screenin g for malignan t neoplasm of cervix;P [facility] ID: 0001 [facility]:05:59 Speciali zed medical examinat ion Completed 201206/22/2021 Gynecolo gical Examinat ion;Jordon rded Elsewher e: No Locat ion: [facility] S ource: [employer] jovany: N Practi ce ID: 0001 Cayetano lable Time: 03:15:00 PM Rahel hopson [facility] 17:06:14 Overweig ht [id number] Completed 201306/22/2021 Overweig ht;Recor ded Elsewher e: No Locat ion: [facility] S ource: [employer] jovany: N Practi ce ID: 0001 Cayetano lable Time: 09:00:00 AM [facility] 1 17:06:03 Female genital organ symptoms [id number] Completed 201106/22/2021 Unspecif ied symptom associat ed with female genital organs;R ecorded Elsewher e: No Locat ion: [facility] S ource: [employer] jovany: N Manishati ce ID: 0001 Cayetano lable Time: 05:00:00 PM Rahel hopson [facility] 1 17:06:01 Disorder of bone and articula r cartilag e [id number] Completed 201106/22/2021 Disorder of bone and cartilag e, unspecif ied;Jordon rded Elsewher e: No Locat ion: [facility]ce[facility]: N Manishati ce ID: 0001 Cayetano lable Time: 01:00:00 PM Rahel hopson [facility] 1 17:06:04 Menopaus e present [id number] Completed 201706/22/2021 Symptoms such as flushing , sleeples sness, headache , lack of concentr ation, associat ed with natural (age-rel ated) menopaus e;Record ed Elsewher e: No Locat ion: [facility] S ource: [facility] jovany: N Manishati ce ID: 0001 Cayetano lable Time: 09:30:00 AM Rahel hopson [facility] 1 17:06:09 Screenin g for malignan t neoplasm of colon Completed 201006/22/2021 Special screenin g for malignan t neoplasm s, colon;Pr actice ID: 0001 Rahel hopson [facility] 17:06:06 Problem Notes None recorded. Procedures Surgical History Date Name Laterality Status Provider Name and Address Organization Details Recorded Time 07/03/20 Date of Last Pap Smear completed Anitra Juan [facility] 06/12/2024 11:46:31 11/11/19 23 Date of Last Mammogram completed [facility] 07/03/2023 10:22:20 09/30/19 23 Most Recent Bone Density completed [facility] 10/13/2024 14:30:09 04/10/20 22 Date of Last Colonoscopy completed [facility] 07/03/2023 10:29:03 04/10/20 22 completed [facility] 07/03/2023 10:29:03 04/10/20 22 Colonoscopy completed [facility] 06/12/2024 11:45:43 08/26/19 21 completed Rahel Wynn [facility] 06/27/2021 11:11:32 07/30/19 16 Xcapsl ctrc rmvl cplx wo ecp completed [facility] 02/23/2022 10:25:53 07/30/18 72 extraction of wisdom tooth completed [facility] 02/23/2022 10:25:27 07/30/18 63 eyebrow and/or eyelid operations completed [facility] 02/23/2022 10:25:38 Laparoscopy completed [facility] 06/12/2024 11:45:43 Imaging Results Imaging Date Name Status LastModified by Organiz ation Details LastModified Time 08/30/2021 MAMMO, screening, digital, bilateral completed VALE [facility] [address], [place], [address], 09/03/2021 11:04:28 09/29/2021 DEXA completed [email or web address] [facility] [address], [place], [address], 10/26/2021 11:27:10 11/10/2022 MAMMO, screening, bilateral completed [email or web address] [facility] [address], [place], [address], 07/03/2023 14:53:09 11/14/2023 MAMMO, screening, bilateral completed VALE [facility] [address], [place], [address], 11/24/2023 11:24:05 Procedure Notes None recorded. Medical Equipment None Reported. Allergies Allergen ID Allergen Name Allergen Category Reaction Reaction Severity Criticality Documentation Date Start Date Code Code System Note Provider Name and Address Organization Details Recorded Time 50881 ampicilli n medicatio n Not available Not available Not available 07/16/2020 733 RxNorm Rahel hopson [facility] 17:05:36 08488 red dye food,medi cation Not available Not available Not available 07/16/2020 UNK Rahel hopson [facility] 17:05:38 37319 Substance with sulfonami de structure and antibacte rial mechanism of action (substanc e) medicatio n Not available Not available Not available 07/16/2020 62503 8003 SNOMED Rahel hopson [facility] 17:05:40 55230 ibuprofen medicatio n hives moderate Not available 06/12/2024 5640 RxNorm Anitra hopson [facility] 4 11:44:51 43597 cyclobenz aprine medicatio n Not available Not available Not available 06/12/2024 30266 RxNorm Anitra hopson [facility] 4 11:44:51 67076 Tylenol medicatio n hives moderate Not available 06/12/202401363 3 RxNorm Anitra Juan mark anthony, [facility] 4 11:44:51 87913 acetamino phen medicatio n Not available Not available Not available 10/13/20242022 161 RxNorm Anitra Juan mark anthony, [facility] 5 14:29:59 Medications Name Sig Start Date Stop Date Status Note LastModified by Organization Details LastModified Time cyclobenz aprine 10 mg tablet TAKE 1 TABLET BY MOUTH THREE TIMES DAILY NEEDED FOR MUSCLE SPASM 07/03 completed Not Available Not Available Not Available latanopro st 0.005 % eye drops active Not Available Not Available Not Available clotrimaz ole 10 mg carrie DISSOLVE 1 TABLET IN MOUTH 5 TIMES A DAY FOR 14 DAYS 06/12 completed Not Available Not Available Not Available hydrocodo ne 5 mg-acetam inophen 325 mg tablet TAKE 1 TABLET BY MOUTH EVERY 6 HOURS NEEDED FOR PAIN 07/03 completed Not Available Not Available Not Available doxycycli ne hyclate 50 mg capsule 06/12 completed Not Available Not Available Not Available pimecroli mus 1 % topical cream active Not Available Not Available Not Available Alphagan P 0.15 % eye drops active Not Available Not Available No t Available simvastat in 5 mg tablet take 1 tablet by oral route every day in the evening 07/03 completed Not Available Not Available Not Available simvastat in 20 mg tablet active Not Available Not Available Not Available ibuprofen 400 mg tablet TAKE 1 TABLET BY MOUTH EVERY 6 HOURS 07/03 completed Not Available Not Available Not Available hydroxyzi ne HCl 25 mg tablet TAKE 1 TABLET BY MOUTH FOUR TIMES DAILY NEEDED FOR URTICARI A 07/03 completed Not Available Not Available Not Available Vitamin D2 1,250 mcg (50,000 unit) capsule take 1 capsule by oral route every week 05/14 completed Prescrib ed Elsewher e: Yes Loca tion: [facility] M odify By: leslie roque DateTime : 03/14/20 12 06:00:00 PM Not Available Not Available Not Available Paxil 10 mg tablet take 1 tablet by oral route every day 06/18 completed Prescrib ed Elsewher e: No Locat ion: [facility] odify By: reggie branch DateTime : 06/13/20 18 09:30:00 AM Not Available Not Available Not Available dicyclomi ne 10 mg capsule 10/13 completed Not Available Not Available Not Available Vitamin D3 10 mcg (400 unit) capsule 06/22 completed Prescrib ed Elsewher e: Yes Loca tion: [facility] odify By: leslie roque DateTime : 05/14/20 13 03:15:00 PM Not Available Not Available Not Available Combigan 0.2 %-0.5 % eye drops instill 1 drop by ophthalm ic route every 12 hours into affected eye(s) 01/03 completed Not Available Not Available Not Available Citracal- D3 Petites 200 mg (as citrate)- 6.25 mcg (250 unit) tablet 06/22 completed Prescrib ed Elsewher e: Yes Loca tion: [facility] odify By: [email or web address] trick En counter DateTime : 03/14/20 12 06:00:00 PM Not Available Not Available Not Available Fish Oil 100 mg-160 mg-1,000 mg capsule 06/22 completed Prescrib ed Elsewher e: Yes Loca tion: [facility] odify By: leslie roque DateTime : 05/14/20 13 03:15:00 PM Not Available Not Available Not Available Aleve 220 mg capsule 06/22 completed Prescrib ed Elsewher e: Yes Loca tion: [facility] odify By: [email or web address] trick En counter DateTime : 03/14/20 12 06:00:00 PM Not Available Not Available Not Available Rhopressa 07/03 completed Not Available Not Available Not Available latanopro st (PF) 0.005 % eye drops 06/12 completed Not Available Not Available Not Available Vitals Date Recorded Body height Body mass index (BMI) Body weight Systolic blood pressure Diastolic blood pressure Provider Name and Address Organization Details Last Updated DateTime 06/27/2021 165.1 cm 8.5 kg/m2 29717.21 g 116 mm[Hg] 70 mm[Hg] Rahel Wynn [facility] 1 11:11:01 Date Recorded Body height Body mass index (BMI) Body weight Systolic blood pressure Diastolic blood pressure Provider Name and Address Organization Details Last Updated DateTime 02/23/2022 165.1 cm 25 kg/m2 52896.86 g 113 mm[Hg] 70 mm[Hg] Jennie Coronatz [facility] 2 10:24:18 Date Recorded Body height Body mass index (BMI) Body weight Systolic blood pressure Diastolic blood pressure Provider Name and Address Organization Details Last Updated DateTime 07/03/2023 165.1 cm 25.5 kg/m2 75916.63 g 105 mm[Hg] 70 mm[Hg] Anitra Drake [facility] 3 10:28:21 Date Recorded Body height Provider Name an d Address Organization Details Last Updated DateTime 06/12/2024 165.1 cm Anitra Drake [facility] 06/12/2024 11:44:44 Date Recorded Body height Body mass index (BMI) Body weight Systolic blood pressure Diastolic blood pressure Provider Name and Address Organization Details Last Updated DateTime 10/13/2024 165.1 cm 25.5 kg/m2 41160.63 g 118 mm[Hg] 74 mm[Hg] Anitra Drake [facility] 5 14:29:54 Social History Question Answer Notes LastModified by Organizat ion Details LastModified Time Tobacco Smoking Status Never Smoker Anitra Drakelorene hopson [facility] 07/03/2023 10:29:14 Do You Have An Advance Directive? Yes Information n ot available 06/12/2024 What Is Your Level Of Alcohol Consumption? None Information not available 07/03/2023 Are You Blind Or Do You Have Difficulty Seeing? No [email or web address] Information n ot available 02/23/2022 What Is Your Level Of Caffeine Consumption? None Information not available 07/03/2023 In The 14 Days Before Symptom Onset, Have You Had Close Contact With A Laboratory-confirm ed COVID-19 While That Case Was Ill? No [email or web address] Information n ot available 02/23/2022 In The 14 Days Before Symptom Onset, Have You Had Close Contact With A Person Who Is Under Investigation For COVID-19 While That Person Was Ill? No [email or web address] Information not available 02/23/2022 Have You Been To An Area Known To Be High Risk For COVID-19? No Information not available 02/23/2022 Are You Deaf Or Do You Have Serious Difficulty Hearing? No [email or web address] Information not available 02/23/2022 What Type Of Diet Are You Following? REGULAR [email or web address] Information n ot available 02/23/2022 What Is The Highest Grade Or Level Of School You Have Completed Or The Highest Degree You Have Received? [id number] Information not available 07/03/2023 What Is Your Occupation? Retired Information not available 07/03/2023 Have You Ever Been Counseled For Unhealthy Alcohol Use? No Information not available 07/03/2023 Do You Use Protection During Sex? No Information not available 07/03/2023 Do You Use Your Seat Belt Or Car Seat Routinely? Yes [email or web address] Information not available 02/23/2022 Do You Have Smoke And Carbon Monoxide Detectors In Your Home? Yes [email or web address] Information not available 02/23/2022 How Much Tobacco Do You Smoke? No Information not available 07/03/2023 Do You Feel Stressed (tense, Restless, Nervous, Or Anxious, Or Unable To Sleep At Night)? [id number] [email or web address] Information not available 02/23/2022 Do You Use Any Illicit Or Recreational Drugs? No [email or web address] Information not available 02/23/2022 Do You Use Sunscreen Routinely? Yes Information not available 02/23/2022 Has Tobacco Cessation Counseling Been Provided? No Information not available 07/03/2023 Have You Used IV Drugs? Yes Information not available 07/03/2023 Do You Or Have You Ever Used Any Other Forms Of Tobacco Or Nicotine? No Information not available 07/03/2023 Sex: Unknown Functional Status Question Answer Note LastModified by Organizat ion Details LastModified Time Do you have difficulty walking or climbing stairs? No Information not available 07/03/2023 Are you able to walk? YESWOREST [email or web address] Information not available 02/23/2022 Are you able to care for yourself? Yes Information not available 07/03/2023 Do you have difficulty dressing or bathing? No Information not available 07/03/2023 What is your exercise level? Moderate Information not available 07/03/2023 Mental Status None recorded. Family History Relationship Description Onset Age of this Age Resolved Age Notes LastModified by Organization Details LastModified Time Maternal Aunt Malignant neoplasm of ovary Not available 2020 17:02:41 Paternal Grandmother Malignant tumor of breast Not available 2020 17:02:54 Mother Malignant tumor of colon [email or web address] Not available 2020 17:03:07 Mother Hyperlipidem ia Not available 2024 13:59:05 Maternal Grandmother Hyperlipidem ia [email or web address] Not available 2024 13:59:05 Maternal Grandmother Alzheimer's disease [email or web address] Not available 2024 13:59:05 Father Hyperlipidem ia [email or web address] Not available 2024 13:59:05 Father Hypertensive disorder [email or web address] Not available 2020 17:04:36 Father Heart disease Not available 2023 11:45:06 Father Diabetes mellitus Not available 2023 11:45:06 Medical History Condition Response Allergies (Food, seasonal, environmental ) Y Other Y Drug/Latex Allergies/Reactions Y Blood Transfusion N Breast Cancer N Dermatologic Disorders N Lung Disease N Defects or Inherited Disease N Breast Problem N Gestational Diabetes N Hematologic disorders N Anesthesia Complications N History of STI N Deep Vein Thrombosis N Polycystic ovary syndrome N Anxiety Disorder N Autoimmune disease Y Arthritis Y Polyps N Infertility N Acid Reflux (GERD) N History of abnormal pap N Cancer N Varicosities N Stroke N Neurologic/Epilepsy Y Endometriosis N High Cholesterol Y Fibromyalgia N Headaches N Kidney Disease N Heart Problems N Thyroid Problems N Kidney or Bladder Problems N GI Problems Y Eating Disorder N Anemia N Art (IVF or FET) N Psychiatric Illness N Ovarian Cancer N Diabetes N Pulmonary (TB, Asthma) N Hepatitis/Liver Disease N No Past Medical History N Eczema Y Urinary Tract Infection N Abuse/Domestic Violence N Asthma N Trauma/Violence N Depression/ depression N Heart Disease N Pre-Eclampsia N Hypertension N Osteoporosis Y Thrombophilias N Gynecological History Statement/Question Response Date of Last Mammogram 11/10/2022 Date of LMP 06/18/2009 N Was last menstrual period normal Y STIs/STDs N 08/26/2020 If Post Menopausal, Age at Menopause 51 Date of Last Colonoscopy 04/10/2022 Desired Control Method None Abnormal Pap N On BCP's at Conception? N HPV Vaccine N Current Control Method None Age at First Child 27 Are cycles usually normal N Most Recent Bone Density 09/29/2022 Sexually Active? N Menses Monthly N Date of DEXA bone scan 09/29/2022 Age of first menstrual cycle 11 Date of Last Pap Smear 07/03/2023 Sexual Problems? N LMP Definite 04/10/2022 N Obstetrics History GPAL:G 1 P 1 0 0 1 Type Value Full Term 1 Living 1 Total 1 Past Encounters Encounter ID Performer Location Encounter Start Date Encounter Closed Date Diagnosis/Indication Diagnosis SNOMED-CT Code Diagnosis ICD10 Code Diagnosis Note [id number] [facility] [address] [address] 06/27/2021 11:01:15 06/27/2021 13:05:40 Gynecologic examination [id number] Z01.419 Take Calcium with Vitamin D 12-1500mg daily. Do monthly self breast exams. It is advised to get annual flu shot in the fall and she could obtain at [facility] or [facility] take care clinic. If you haven't received the Tdap vaccine in the last 10 years you should obtain one as well. Have mammogram yearly, bone density every 2-3 years and colonoscop y every 5-10 years depending on findings and history. Engage in daily exercise of low impact aerobic exercise 45-60 minutes 4-5 times weekly. Avoid tobacco and illicit drugs as well as using moderation with alcohol intake less than 1-2 8 oz beverages daily. This lifestyle behavior pattern will lead to less health conditions and longer life span. If BMI greater than 25 weight watchers or dietary consult advised. Questions have been answered. Patient appears to understand instructio ns, but if you have any further questions call or respond to this email. [id number] [facility] [address] [address] 02/23/2022 10:06:23 02/24/2022 16:55:49 [id number] Francy Sauceda , [facility] [address] [address] 07/03/2023 10:16:58 07/03/2023 14:56:31 Gynecologic examination [id number] Z01.419 Take Calcium with Vitamin D 12-1500mg daily. Do monthly self breast exams. It is advised to get annual flu shot in the fall and she could obtain at [facility] or [facility] care clinic. If you haven't received the Tdap vaccine in the last 10 years you should obtain one as well. Have mammogram yearly, bone density every 2-3 years and colonoscop y every 5-10 years depending on findings and history. Engage in daily exercise of low impact aerobic exercise 45-60 minutes 4-5 times weekly. Avoid tobacco and illicit drugs as well as using moderation with alcohol intake less than 1-2 8 oz beverages daily. This lifestyle behavior pattern will lead to less health conditions and longer life span. If BMI greater than 25 weight watchers or dietary consult advised. Questions have been answered. Patient appears to understand instructio ns, but if you have any further questions call or respond to this email Pap/hpv sent (opts to send at least every other year. Guidelines discussed & will consider d/c pap/hpv moving forward unless otherwise indicated) . STD Screen declinedGe netic Screen discussedC olon Screen UTD PCPDexa Screen UTD PCPRoutine Labs UTD PCP Screening mammography 24 [id number] Z12.31 [id number] Antolin Contreras MD [facility] [address] [address] 06/12/2024 11:34:23 06/12/2024 12:12:57 Prolapse of female genital organs [id number] N81.9 69-year-ol d female with pelvic organ prolapse and urge incontinen ce. Refer to urogynecohawk taylor. discussed the findings on the exam. Explained pelvic organ prolapse. She has a isolated cystocele , I believe. I spent over 20 minutes on the patient's care in total. Urge incon tinence of urine [id number] N39.41 [id number] Antolin Contreras MD [facility] [address] [address] 10/13/2024 13:57:53 10/13/2024 14:56:11 Prolapse of female genital organs [id number] N81.9 This patient is a 69-year-ol d female with pelvic organ prolapse. She has seen Urogynecohawk taylor. The plan with uro gynecologi st to do a sacral colpopexy. Dr. Ramirez and I will perform the procedure. I will do the hysterecto my portion of the procedure. She will have a supracervi gorge hysterecto my. I explained the procedure the patient in detail. The patient understand s the procedure. The procedure was described to the patient in great detail. the patient also understand s the risks. The risks were also explained in detail. She understand s that injuries May occur during surgery. She understand s these injuries can result in hospitaliz ation, more surgery, and severe illness. She understand s there is risk of hemorrhage and infection. I spent more than 30 minutes on the patient's care in total, including documentat ion. Health Concerns Section Related Observation LastModified by Organization Detai ls LastModified Time None Recorded Concern Status LastModified by Organization Details LastModified Time None Recorded Advance Directives Directive Y: Payers Encounter Date Sequence Insurance Name Policy Number Policy Santiago Covered Member ID Santiago Member ID Guarantor Name 06/27/2021 1 [place] Tgiist Stein [id number] Tigistclark [employer] 06/27/2021 2 WPS - FOR LIFE (MEDICARE SUPPLEMENT) Bon Stein [id number] Tigistclark Stein 02/23/2022 1 [place] Tigist N Stein [id number] Tigist Stein 02/23/2022 2 WPS - FOR LIFE (MEDICARE SUPPLEMENT) Bon Stein [id number] Tigist Stein 07/03/2023 1 [place] Tigist Eldridge Stein [id number] Tigist Stein 07/03/2023 2 WPS - FOR LIFE (MEDICARE SUPPLEMENT) Bon Stein [id number] Tigist Stein 06/12/2024 1 [place] Tigist Eldridge Stein [id number] Tigist Stein 06/12/2024 2 WPS - FOR LIFE (MEDICARE SUPPLEMENT) Bon Stein [id number] Tigist Stein 10/13/2024 1 [place] Tigist Eldridge Stein [id number] Tigist Stein 10/13/2024 2 WPS - FOR LIFE (MEDICARE SUPPLEMENT) Bon Stein [id number] Tigist Stein Notes Date Note Type Note Provider Name and Address Organization Details Recorded Time 06/27/2021 text/html Annual GYNReport ed bypatient.Urinary symptoms:No hematuria; No incontinence Vulva:No genital lesion Vagina:Normal vaginal discharge Breast:No breast pain; No breast lump; No nipple discharge Sexual complaints:No sexual complaints; No pain during intercourse; Normal libido Menopausal Symptoms:No menopausal symptoms; Normal vaginal lubrication Psychological symptoms:No depression; No anxiety; No PMDD Jen hopson [facility] 06/27/2021 12:30:13 02/23/2022 text/html Follow up on bon e density and osteo labs Jen hopson [facility] 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 Post-MenopausalRepo rted bypatient.Menopausa l Symptoms:no menopausal symptoms; normal vaginal lubrication Vaginal Bleeding:history of menopause having occurred; no history of post menopausal bleeding Urinary Symptoms:no hematuria; no incontinence; no nocturia; no urinary frequency Vulva:no genital lesion; no vulvar atrophy Vagina:normal vaginal discharge; no vaginal atrophy Breast:no breast lump; no nipple discharge; no breast pain Sexual Complaints:no sexual complaints Psychological Symptoms:no depression; no anxiety Preventive Measures:encourage regular mammograms starting age 40; encourage self breast examination; encourage regular exercise; encourage no tobacco use; needs to schedule mammogram; history of recent colonoscopy Francy Sauceda [facility] [address], [place], [address], [facility] 07/03/2023 14:55:18 06/12/2024 text/html this patient is a 69-year-old female presents for a bulge at the introitus of the vagina. Patient also reports symptoms of urge incontinence. She denies any vaginal bleeding. She denies any dryness to the bulge /vaginal mucosa. No cracks. She denies constipation. She denies any splinting.. she reports difficulty emptying her bladder. Antolin Contreras MD [address], [place], [address], [facility] 06/12/2024 12:12:06 10/13/2024 text/html This patient is a 69-year-old female with pelvic organ prolapse. She has seen Urogynecology. The plan with uro gas flow regulator to do a sacral colpopexy. Dr. Ramirez and I will perform the procedure. I will do the hysterectomy portion of the procedure. She will have a supracervical hysterectomy. I explained the procedure the patient in detail. The patient understands the procedure. The procedure was described to the patient in great detail. the patient also understands the risks. The risks were also explained in detail. She understands that injuries May occur during surgery. She understands these injuries can result in hospitalization, more surgery, and severe illness. She understands there is risk of hemorrhage and infection. I spent more than 30 minutes on the patient's care in total, including documentation. Antolin Contreras MD [address], [place], [address], [facility] 10/13/2024 14:54:40 OBGyn Episode Ob Episode Information Episode Created Date Number of Fetuses Patient Bloodtype Patient rh Status Prepregnancy Weight lbs Domestic Partner Domestic Partner Phone Father Name Measurer Machine Status 06/22/20 21 1 CLOSED Fetus Data First Name Last Name Admitted to NICU Weight (g) Sex Living Outcome Pediatric Complications Fetus ID Race Codes Race Delivery Type 3940.35 3704 M Full Term [id number] Vaginal Delivery Riaz Calculation Initial Riaz Date Initial Exam Date Initial Exam Provider Initial Ultrasound Date Last Menstrual Period Date Ultra Sound Weeks Gestation 0 Eighteen To Twenty Week Riaz Update Ultra Sound Date Fundal Height At Umbil Quickening Date Ultra Sound Latest Weeks Gestation Final Riaz Confirmed By Final Riaz Confirmed Date Final Riaz Date Ultra Sound Latest Days Gestation 0 0 Menstrual History Last Menstrual Date Menses Monthly On Bcp Conception Prior Menses Frequency Hcg Plus Date Menarche Onset Age Delivery Information Delivery Date Delivery Type Labor Anesthesia Weeks Gestation Incision Type Labor Labor Length Hrs Delivered By Post Complications Tubal Sterilization Discharge Date Comments 3 40 Garry Discharge Information Feeding Method Contraceptive Method Maternal HG B and HCT Levels
[2024-12-01] MEDS: LACTATED RINGERS 1,000 ML 30 ML IV CONT ×2 (06:25→10:17)
[2024-12-01] MEDS: KETOROLAC 15 MG/ML VIAL (*BKC) IV PUSH (06:30)
--- NOTE | 2024-12-01 07:13 | P.HP_ITS ---
H&P: HPI History of Present Illness Date/Time: 12/01/24 07:13 Chief Complaint: Pelvic organ prolapse Narrative: This patient is 69-year-old female with pelvic organ prolapse. We agreed to treatment with robotic sacrocolpopexy with supracervical hysterectomy and bilateral salpingo-oophorectomy. Dr. Ramirez will be performing the sacral colpopexy. Patient understands procedure. She understands risks, benefits, and alternatives. She has completed the informed consent process is ready to proceed. The patient understands the details of the procedure. The procedure has been explained in detail. She understands the risks. She understands that injuries may occur that result in hospitalization, more surgery, and severe illness. She understands risk of hemorrhage and infection. She denies any chest pain or shortness of breath. She denies any nausea, vomiting, fever, chills. Review of Systems Review of Systems: All systems reviewed & are unremarkable except as noted in HPI and below Constitutional: Constitutional: Denies chills, Denies fatigue, Denies fever(s) and Denies weakness Eyes: Eyes: Denies blurry vision, Denies change in vision, Denies loss of peripheral vision, Denies loss of vision, Denies other visual disturbances and Denies eye pain ENT: Denies vertigo, Denies dizziness, Denies hearing loss, Denies mouth pain, Denies nasal obstruction, Denies neck mass and Denies neck pain Cardiovascular: Cardiovascular: Denies chest pain, Denies diaphoresis, Denies syncope, Denies leg edema and Denies dyspnea Respiratory: Respiratory: Denies chest congestion, Denies cough, Denies hemoptysis, Denies dyspnea and Denies wheezing Gastrointestinal: Gastrointestinal: Denies abdominal pain, Denies constipation, Denies diarrhea, Denies nausea and Denies vomiting Genitourinary: Genitourinary: Denies hematuria, Denies change in libido, Denies nocturia, Denies genital lesions, Denies flank pain and Denies urinary urgency Musculoskeletal: Musculoskeletal: Denies abnormal gait, Denies back pain, Denies myalgias, Denies arthralgias, Denies joint swelling, Denies muscle weakness and Denies neck pain Integumentary/Breasts: Skin/Breast: Denies swelling, Denies breast pain, Denies breast mass, Denies dry skin, Denies nipple discharge, Denies unusual b ruising and Denies jaundice Neurologic: Denies Neuro-related abnormal movements, Denies Abnormal speech present, Denies abnormal gait, Denies behavioral changes, Denies confusion, Denies vertigo, Denies dizziness, Denies syncope, Denies loss of vision, Denies memory loss, Denies convulsions and Denies weakness Psychiatric: Psychiatric: Denies abnormal sleep pattern, Denies behavioral changes, Denies change in libido, Denies confusion, Denies depression, Denies anhedonia and Denies memory loss Endocrine: Endocrine: Reports no additional endocrine complaints, Denies change in libido and Denies fatigue Hematologic/Lymphatic: Hematologic/Lymphatic: Reports no additional hematologic/lymphatic complaints Allergic/Immunologic: Allergic/Immunologic: Reports no additional allergic/immunologic complaints and Denies wheezing PMFSH Past Medical History Medical History Cystocele Predislocation syndrome of metatarsophalangeal joint Mucous cyst of toe Family hx of colon cancer Dizziness and giddiness Dietary counseling and surveillance (09/11/16) Adult general medical examination Hyperlipidemia Family History Family History Father Depression Family history of chronic obstructive pulmonary disease Mother Family history of gastrointestinal disorder, Onset Age: 72 Family history of anemia, Onset Age: 72 Carcinoma of colon, Onset Age: 72 Sibling Diabetes mellitus Narcolepsy Social History Social History Smoking status: Never smoker Second hand tobacco smoke exposure: Yes Alcohol intake: current Drinks per week: 1 Alcohol use details: 1 per 3 mos Substance use: never Substance use type: does not use Do You Feel Safe in your Home?: Yes Lack of Transportation: No Lack of Food: Never True Current Housing: I Have Housing Concerned About Future Housing: No Difficulty Paying Gas/Electric Bills: No Difficulty Paying for Meds: No Currently Unemployed: No Education: Master's Degree or Higher Difficulty w/ Childcare or Family Care: No Living arrangements: with family Additional living arrangements comments: With Spouse 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 Gender identity (if verbalized by the patient): Female Spiritual care concerns: No Meds Home Medications and Allergies Home Medications ?Medication ?Instructions ?Recorded ?Confirmed ?Type calcium 315 mg (as 1 tablet PO DAILY 10/02/19 12/01/24 History citrate)-vitamin D3 6.25 mcg (250 unit) tablet (Citracal + Vitamin D Maximum) latanoprost 0.005 % eye drops 1 drp EACH EYE DAILY 10/13/22 12/01/24 History brimonidine 0.15 % eye drops 2 drp EACH EYE DAILY 05/19/23 12/01/24 History (Alphagan P) omega-3 fatty acids 1,000 mg 1,200 mg PO DAILY 05/30/23 12/01/24 History capsule sodium chloride 1,000 mg soluble 1,000 mg PO DAILY #30 tabs 04/10/24 12/01/24 Rx tablet simvastatin 20 mg tablet 20 mg PO DAILY #90 tabs 10/22/24 12/01/24 Rx Allergies Allergy/AdvReac Type Severity Reaction Status Date / Time acetaminophen Allergy Severe hives Verified 12/01/24 06:09 ampicillin Allergy Intermediate rash Verified 12/01/24 06:09 ibuprofen (From Advil) AdvReac Intermediate Rash Verified 12/01/24 06:09 cyclobenzaprine AdvReac Mild Blister Verified 12/01/24 06:09 Penicillins AdvReac Mild RASH, HIVES Verified 12/01/24 06:09 red dye AdvReac Mild HIVES/ITCHI Verified 12/01/24 06:09 NG Sulfa (Sulfonamide AdvReac Mild RASH, HIVES Verified 12/01/24 06:09 Antibiotics) thimerosal AdvReac Mild Itching Verified 12/01/24 06:09 Vital Signs Vital Signs - 24 hr 12/01/24 06:05 Temperature 97.1 F L Pulse Rate 90 Respiratory Rate 16 Blood Pressure 120/80 Pulse Oximetry 98 Oxygen Delivery Room Air Exam Const: General: cooperative, healthy appearing, comfortable and no acute distress Orientation/consciousness: oriented to person, oriented to place and oriented to time HENMT: Head: normal to inspection Ears: external ears normal Face/Nose/Sinus: Normal external nose present and normal facial exam Face and sinus: normal facial exam Eyes: General: appearance normal, both eyes and all related structures Neck: Neck: normal visual inspection, trachea midline and supple Resp: Auscultation: clear to auscultation bilaterally, no crackles, no rales, no rhonchi and no wheezes Cardio: Rate: regular rate Rhythm: regular rhythm Heart sounds: no click, no murmurs and no rubs GI: GI Palp: No abdominal tenderness, No Soft to palpation, No Tenderness to palpation present (GI) and No Palpable mass present Auscultation: normal bowel sounds Skin: General skin exam: normal color and no rashes or lesions noted Neuro: General: oriented to person, oriented to place and oriented to time Extrem: General: normal to inspection, no joint enlargement, no clubbing, cyanosis or edema, no pedal edema and no calf tenderness Psych: Appearance: grossly normal Mental Status: mental status grossly normal Speech and movement: Normal speech and movement present Assessment and Plan Assessment and plan (1) Prolapse of female pelvic organs: Code(s): N81.9 - Female genital prolapse, unspecified Status: Acute Plan This patient is 69-year-old female with pelvic organ prolapse. We agreed to treatment with robotic sacrocolpopexy with supracervical hysterectomy and bilateral salpingo-oophorectomy. Dr. Ramirez will be performing the sacral colpopexy. Patient understands procedure. She understands risks, benefits, and alternatives. She has completed the informed consent process is ready to proceed.
--- NOTE | 2024-12-01 07:13 | P.PNAN_ITS ---
Anes - Initial Pre Proc Eval Procedure: Operation Date: 12/01/24 07:30 Proposed Procedures p Robotic Sacrocolpopexy, Urethral Sling - Xander Ramirez MD s Robotic Assisted Laparoscopic Supracervical Hysterectomy with Bilateral Salpingo-oophorectomy - Antolin Contreras MD Date/Time: 12/01/24 07:13 Surgeon: Xander Ramirez MD Pre Op Diagnosis: uterine prolapse, cystocele, incont Patient Data Age: 69 Gender: F Height: 1.57 m Weight: 69.4 kg Last Vital Signs Temp 36.2 C L 12/01/24 06:05 Pulse 90 12/01/24 06:05 Resp 16 12/01/24 06:05 BP 120/80 12/01/24 06:05 Pulse Ox 98 12/01/24 06:05 O2 Del Method Room Air 12/01/24 06:05 Allergies Allergy/AdvReac Type Severity Reaction Status Date / Time acetaminophen Allergy Severe hives Verified 12/01/24 06:09 ampicillin Allergy Intermediate rash Verified 12/01/24 06:09 ibuprofen (From Advil) AdvReac Intermediate Rash Verified 12/01/24 06:09 cyclobenzaprine AdvReac Mild Blister Verified 12/01/24 06:09 Penicillins AdvReac Mild RASH, HIVES Verified 12/01/24 06:09 red dye AdvReac Mild HIVES/ITCHI Verified 12/01/24 06:09 NG Sulfa (Sulfonamide AdvReac Mild RASH, HIVES Verified 12/01/24 06:09 Antibiotics) thimerosal AdvReac Mild Itching Verified 12/01/24 06:09 Home Medications ?Medication ?Instructions ?Recorded ?Confirmed ?Type calcium 315 mg (as 1 tablet PO DAILY 10/02/19 12/01/24 History citrate)-vitamin D3 6.25 mcg (250 unit) tablet (Citracal + Vitamin D Maximum) latanoprost 0.005 % eye drops 1 drp EACH EYE DAILY 10/13/22 12/01/24 History brimonidine 0.15 % eye drops 2 drp EACH EYE DAILY 05/19/23 12/01/24 History (Alphagan P) omega-3 fatty acids 1,000 mg 1,200 mg PO DAILY 05/30/23 12/01/24 History capsule sodium chloride 1,000 mg soluble 1,000 mg PO DAILY #30 tabs 04/10/24 12/01/24 Rx tablet simvastatin 20 mg tablet 20 mg PO DAILY #90 tabs 10/22/24 12/01/24 Rx Patient hx anesthesia problems: none Family hx anesthesia problems: none Results Review: All pre-operative results and documents have been reviewed as part of the pre- operative evaluation. [facility] Past Medical History Medical History Cystocele Predislocation syndrome of metatarsophalangeal joint Mucous cyst of toe Family hx of colon cancer Dizziness and giddiness Dietary counseling and surveillance (09/11/16) Adult general medical examination Hyperlipidemia Family History Family History Father Depression Family history of chronic obstructive pulmonary disease Mother Family history of gastrointestinal disorder, Onset Age: 72 Family history of anemia, Onset Age: 72 Carcinoma of colon, Onset Age: 72 Sibling Diabetes mellitus Narcolepsy Social History Social History Smoking status: Never smoker Second hand tobacco smoke exposure: Yes Alcohol intake: current Drinks per week: 1 Alcohol use details: 1 per 3 mos Substance use: never Substance use type: does not use Do You Feel Safe in your Home?: Yes Lack of Transportation: No Lack of Food: Never True Current Housing: I Have Housing Concerned About Future Housing: No Difficulty Paying Gas/Electric Bills: No Difficulty Paying for Meds: No Currently Unemployed: No Education: Master's Degree or Higher Difficulty w/ Childcare or Family Care: No Living arrangements: with family Additional living arrangements comments: With Spouse 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 Informed Consent: The patient's anesthetic plan and its attendant risks and benefits were discussed with the patient/family/POA. Questions were solicited and answers provided to the satisfaction of the patient/family/POA.
--- NOTE | 2024-12-01 07:13 | WPDHPUPDATE1 ---
History and Physical Update Update Date/Time: 12/01/24 07:13 History and Physical has been reviewed, including an updated exam of the patient. There are NO changes in the patient's condition. Risks, benefits, and alternatives have been discussed and questions answered. Patient agrees to proceed with procedure.
--- NOTE | 2024-12-01 07:17 | WPDHPUPDATE1 ---
History and Physical Update Update Date/Time: 12/01/24 07:17 History and Physical has been reviewed, including an updated exam of the patient. There are NO changes in the patient's condition. Risks, benefits, and alternatives have been discussed and questions answered. Patient agrees to proceed with procedure.
--- NOTE | 2024-12-01 07:18 | WPDHPUPDATE1 ---
History and Physical Update Update Date/Time: 12/01/24 07:18 History and Physical has been reviewed, including an updated exam of the patient. There are NO changes in the patient's condition. Risks, benefits, and alternatives have been discussed and questions answered. Patient agrees to proceed with procedure. robotic colpopexy/urethral sling
[2024-12-01] MEDS: ceFAZolin 2 GM/D5W 50 ML 2 GM/50 ML BAG IVPB (07:26)
[2024-12-01] MEDS: metroNIDAZOLE 500 MG/ISO 100ML 500 MG/100 ML BAG 100 MG IVPB (07:26)
[2024-12-01] MEDS: BUPIVACAINE/EPINEPHRINE 0.5% 50 ML VIAL 40 ML INFILTRATE (08:18)
--- NOTE | 2024-12-01 08:41 | W.PM.PROC2 ---
Procedure Note - Detailed Date of Procedure 12/01/24 Pre-op Diagnosis uterine prolapse, cystocele, incont Post-op Diagnosis Same Procedure Performed Robotic assisted supracervical hysterectomy with bilateral salpingo-oophorectomy Surgeon Antolin Contreras MD Anesthesia General Indications pelvic organ prolapse Findings normal-appearing uterus, ovaries, and left tube, right tube was partially resected. Some scarring over the posterior cul-de-sac peritoneum. Description of Procedure This patient was taken to the operating room. She was prepped and draped in the dorsal lithotomy position after induction of general anesthesia. the robot trocars and docking was performed by Dr. Ramirez. a tenaculum was applied to the vaginal mucosa at the cervicovaginal juncture posteriorly. This was done with a speculum and tenaculum. The speculum was placed. The cervix was grasped with a tenaculum. Trocars were placed by Dr. Ramirez. The location of the ureters was identified at the pelvic brim. The ovaries were grasped and raised. The infundibulopelvic ligaments were cauterized and transected with LigaSure cautery. This was all done in a bilateral fashion. The para ovarian tissue was cauterized and transected with LigaSure cautery bilaterally. Moving around the ovary into the broad ligament the tissue was cauterized transected with The vessel sealer cautery. The round ligaments were cauterized transected with the vessel sealer cautery this was all done in a bilateral fashion. In a stepwise fashion along the lateral aspects of the uterus the round ligament and broad ligaments were cauterized transected down to the level of the uterine arteries. The cervix was transected using unipolar cautery. the uterus was bifurcated down to the level the cervix. The uterus and bilateral tubes and ovaries were laid off to the side for Dr. Ramirez to remove later. The remainder of the procedure was performed by Dr. Ramirez, again he finished the surgery. Urine Output 800 Drains Yes Packing No Pathology Yes Complications No immediate complications Condition Stable Disposition Floor
--- NOTE | 2024-12-01 10:27 | W.PM.PROC2 ---
Procedure Note - Detailed Date of Procedure 12/01/24 Pre-op Diagnosis uterine prolapse, cystocele, stress incontinence Post-op Diagnosis Same Procedure Performed Robotic assisted laparoscopic sacral colpopexy Urethral sling Cystoscopy Surgeon Xander Ramirez MD Anesthesia General Indications A woman with uterine prolapse as well as stress incontinence. She desires surgical correction. She is here for the above. She understands risks of bleeding, infection, diskitis, damage to surrounding organs, bowel injury, bowel obstruction, mesh related complications including exposure and extrusion, postoperative voiding dysfunction including incontinence and retention, need for ancillary procedures, dyspareunia, recurrence of prolapse, and other perioperative intraoperative postoperative complications. She agrees to proceed. Findings See below Description of Procedure She was correctly identified. Informed consent obtained. She from the operating room. She was given general anesthesia. She was given appropriate perioperative antibiotics. She was placed a low lithotomy position. Pressure points were padded. A time-out performed. I marked out the skin 3 fingerbreadths cephalad to the umbilicus. I anesthetized the skin. I incised the skin. I dissected down to the fascia. I grasped the fascia with John clamps. I entered the fascia sharply in a Arriaga type technique. I placed sutures for later fascial closure. I placed a midline trocar. I examined the abdomen. There is no sign of any injury. Under direct vision I placed 2 additional trocars in the right upper quadrant and 2 additional trocars the left upper quadrant. She was placed in steep Trendelenburg. The robot was docked. Her coal grader completed their portion of the procedure. Please see that operative report for details. I then sat at the console. The Sizer in the vagina created plane on the anterior and posterior vaginal wall. I took great care not to injure the vagina, bladder, or rectum. I introduced the mesh into the abdomen. I sewed the anterior leaflet of mesh on the anterior vaginal wall. I sewed the posterior leaflet of mesh on the posterior vaginal wall. This was done with several sutures of 2 0 [place]-Rojelio. I reflected the colon laterally. Go to the colon was deviated far to the right. I opened the posterior peritoneum over the sacral promontory. I carried this into the cul-de-sac. She had aberrant anatomy over the sacral promontory. The right common iliac vessel was positioned right on the sacral promontory. This required me to look for an area on the sacral promontory and left inferior. I was successfully able to find this. I freed up the edges for later retroperitonealization. I located the anterior longitudinal ligament the sacrum. I cleaned off all fatty tissues. I then tensioned my mesh appropriately. I did a vaginal exam the bedside. I assured prolapse reduction without undue tension. I then sewed the proximal leaflet of mesh onto the anterior longitudinal ligament of the sacrum with 3 sutures of 2 0 [place]-Rojelio. I then used a 2 0 Monocryl to completely and meticulously retroperitonealized all mesh. I allowed the colon to go back to its normal anatomic location. There is no sign of any impingement. The specimen was then removed. All ports removed. Fascia was tied down. An additional 2 sutures was used to fully close the fascia Skin was closed with Monocryl and surgical glue. She was repositioned and prepped for urethral sling. I marked out the inner thigh incisions. I anesthetized the skin and made the incisions. I then anesthetized the anterior vaginal wall at the mid urethra. I made a 1 cm incision. I dissected out laterally taking great care not to injure the refilled vaginal wall. I passed the helical trocars. I did this 1st on the left and then on the right. This was done from the thigh incision towards the vaginal incision. Sling was connected to the trocars and brought out the thigh incision. I tensioned the sling appropriately. I cut and the plastic sheaths. I closed the incision with 2 0 Vicryl. I then performed cystoscopy. There was no tumors or surgical artifact. Both ureters were seen to excrete clear yellow urine. There is no surgical artifact in the bladder or urethra. I cut the excess sling material. Close incision with glue. She was awakened and transferred to PACU in stable condition. Implants Sacral colpopexy mesh Urethral sling Estimated Blood Loss 20 Packing No Pathology None sent Complications No immediate complications Condition Stable Disposition PACU
[2024-12-01] MEDS: fentaNYL CITRATE INJ (*CRX) 100 MCG/2 ML VIAL 25 MCG IV PUSH ×2 (10:45→10:48)
--- NOTE | 2024-12-01 11:15 | OBPPTRN ---
Patient transferred to post room #289 via stretcher. Support person present. Oriented to unit, room, information board, rooming in, admission packet and security measures. Patient verbalizes understanding.
[2024-12-01] MEDS: KCL 20 MEQ/D5/0.45% SOD CHL 1,000 ML 100 ML IV CONT (11:33)
[2024-12-01] MEDS: DOCUSATE SODIUM 100 MG CAPSULE PO (12:23)
[2024-12-01] MEDS: levoFLOXacin 500 MG TABLET PO (12:23)
[2024-12-01] MEDS: traMADol HCL (*CRX) 50 MG TABLET PO (14:05)
[2024-12-01] MEDS: metroNIDAZOLE 500 MG TABLET PO (16:24)
[2024-12-02 00:20] VITALS: BP 109/56; PULSE 95; RESP 18; TEMP 36.4; O2SAT 95
[2024-12-02] MEDS: metroNIDAZOLE 500 MG TABLET PO ×2 (00:26→08:34)
[2024-12-02] MEDS: traMADol HCL (*CRX) 50 MG TABLET PO (00:26)
[2024-12-02 04:00] VITALS: BP 101/58; PULSE 86; RESP 20; TEMP 36.6; O2SAT 95
[2024-12-02 07:50] VITALS: BP 126/66; PULSE 77; RESP 16; TEMP 36.7; O2SAT 98
[2024-12-02] MEDS: ENOXAPARIN 30 MG/0.3 ML SYRINGE SUB-Q (08:34)
[2024-12-02] MEDS: DOCUSATE SODIUM 100 MG CAPSULE PO (08:34)
[2024-12-02] MEDS: levoFLOXacin 500 MG TABLET PO (08:34)
--- NOTE | 2024-12-02 08:43 | P.PNOB_ITS ---
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/P Postoperative Procedures: Procedures Operation Date: 12/01/24 07:30 Actual Procedure Side Surgeon p Robotic Sacrocolpopexy, Urethral Sling Not Applicable Xander Ramirez MD s Robotic Assisted Laparoscopic Supracervical Hysterectomy with Bilateral Salpingo-oophorectomy Bilateral Antolin Contreras MD Postoperative day: 1 Postoperative status: doing well Postoperative plan: see orders Time Spent With Patient Time: Total time spent is greater than 50% in coordination of care (as documented) at patient's floor/unit and/or counseling patient: Time with patient: less than 15 minutes LIVE AMM[employer]ITION INSPECTOR- PN:Subj Post-Op Subjective Date/time seen: 12/02/24 08:43 Subjective: patient reports feeling better, patient has no complaints and pain is well controlled Exam Const: General: healthy appearing, comfortable and no acute distress Resp: Auscultation: clear to auscultation bilaterally, no rales, no rhonchi and no wheezes Cardio: Rate: regular rate Heart sounds: no click, no murmurs and no rubs GI: Inspection: non-distended Auscultation: normal bowel sounds Extrem: General: normal to inspection, no pedal edema and no calf tenderness [employer]IVE [employer]ITION INSPECTOR - PN: Obj Data Vital Signs Vital Signs: Vital Signs - 24 hr 12/01/24 10:17 12/01/24 10:30 12/01/24 10:35 Temperature 97 F L Pulse Rate 88 76 Respiratory Rate 18 20 Blood Pressure 106/53 L 103/57 L Pulse Oximetry 100 100 Oxygen Delivery Simple Face Mask Simple Face Mask Room Air Oxygen Flow Rate 8 8 12/01/24 10:45 12/01/24 11:00 12/01/24 11:10 Temperature 97 F L Pulse Rate 75 72 74 Respiratory Rate 18 14 14 Blood Pressure 109/63 108/64 109/65 Pulse Oximetry 99 95 95 Oxygen Delivery Room Air Room Air Room Air Oxygen Flow Rate 12/01/24 11:20 12/01/24 11:25 12/01/24 16:20 Temperature 97.3 F L 97.6 F Pulse Rate 79 81 Respiratory Rate 16 16 Blood Pressure 112/70 126/73 Pulse Oximetry 1 L 100 97 Oxygen Delivery Oxygen Flow Rate 12/01/24 20:15 12/01/24 20:15 12/02/24 00:20 Temperature 98.2 F 97.5 F L Pulse Rate 93 95 Respiratory Rate 18 18 Blood Pressure 118/61 109/56 L Pulse Oximetry 93 95 Oxygen Delivery Room Air Oxygen Flow Rate 12/02/24 04:00 12/02/24 06:45 12/02/24 07:50 Temperature 97.9 F 98.1 F Pulse Rate 86 77 Respiratory Rate 20 16 Blood Pressure 101/58 L 126/66 Pulse Oximetry 95 98 Oxygen Delivery Room Air Oxygen Flow Rate Intake/Output Intake/Output: Intake & Output 11/29/24 11/30/24 12/01/24 12/02/24 23:59 23:59 23:59 23:59 Intake Total 890 450 Output Total 2450 2450 Balance -1559 Meds/Results Medications: Active Medications Generic Name Dose Route Start Last Admin Trade Name Freq PRN Reason Stop Dose Admin Diphenhydramine HCl 25 mg 12/01/24 11:12 Diphenhydramine Hcl Inj 50 Mg/Ml Vial IV PUSH Q6H PRN Itching Docusate Sodium 100 mg 12/01/24 11:12 12/02/24 08:34 Docusate Sodium 100 Mg Capsule PO 100 mg DAILY BRANDAN Administration Enoxaparin Sodium 30 mg 12/02/24 09:00 12/02/24 08:34 Enoxaparin 30 Mg/0.3 Ml Syringe SUB-Q 30 mg DAILY BRANDAN Administration Fentanyl Citrate 25 mcg 12/01/24 07:14 12/01/24 10:48 Fentanyl Citrate Inj (*Crx) 100 Mcg/2 Ml Vial IV PUSH 25 mcg Q2M PRN Administration Pain Lactated Ringer's 1,000 mls @ 30 mls/hr 12/01/24 07:15 12/01/24 10:17 Lr - Lactated Ringers Iv IV CONT Infused .Q24H BRANDAN Infusion Lactated Ringer's 1,000 mls @ 30 mls/hr 12/01/24 07:15 12/01/24 11:10 Lr - Lactated Ringers Iv IV CONT Infused .Q24H BRANDAN Infusion Potassium Chloride/Dextrose/Sod Cl 1,000 mls @ 100 mls/hr 12/01/24 11:12 12/01/24 11:33 Kcl 20 Meq/D5/0.45% Sod Chl IV CONT 100 mls/hr .Q10H BRANDAN Administration Potassium Chloride/Dextrose/Sod Cl 1,000 mls @ 100 mls/hr 12/02/24 04:55 Kcl 20 Meq/D5/0.45% Sod Chl IV CONT .Q10H BRANDAN Ketorolac Tromethamine 30 mg 12/01/24 11:12 Ketorolac 30 Mg/Ml Vial (*Bkc) IV PUSH Q8H PRN Pain Rated 5 or Less Levofloxacin 500 mg 12/01/24 11:12 12/02/24 08:34 Levofloxacin 500 Mg Tablet PO 500 mg QAM BRANDAN Administration Metronidazole 500 mg 12/01/24 14:00 12/02/24 08:34 Metronidazole 500 Mg Tablet PO 500 mg Q8HR BRANDAN Administration Miscellaneous Information 0 each 12/01/24 00:01 Allergies Listed To Acetaminophen & Ibuprofen. Waiting For Call Back From Dr Ramirez's Of XX 12/31/24 00:00 CLARIFY BRANDAN Morphine Sulfate 2 mg 12/01/24 11:12 Morphine Sulfate (*Crx) 2 Mg/Ml Inj IV PUSH Q2H PRN Pain Rated 6 or Greater Ondansetron HCl 4 mg 12/01/24 07:14 Ondansetron Inj 4 Mg/2 Ml Vial IV PUSH ONCE PRN Nausea Ondansetron HCl 4 mg 12/01/24 11:12 Ondansetron Inj 4 Mg/2 Ml Vial IV PUSH Q6H PRN Nausea And Vomiting Tramadol HCl 50 mg 12/01/24 07:33 12/02/24 00:26 Tramadol Hcl (*Crx) 50 Mg Tablet PO 50 mg Q6H PRN Administration Pain Rated 4-6 Zolpidem Tartrate 5 mg 12/01/24 11:12 Zolpidem Tartrate (*Crx) 5 Mg Tablet PO HS PRN Insomnia
== END 2024-12-02 09:54 | disposition home or self-care (01) ==
LOC: ANHSURGERY 07:34 → ANHOB2 11:18
PROVIDERS: Obstetrics & Gynecology; PCP Internal Medicine; Visit Provider Urology
PROC: (CPT 57425; principal; 2024-12-01 07:30)
PROC: 0UT94ZZ Resection of Uterus, Percutaneous Endoscopic Approach (ICD-10-PCS; CPT 57425; 2024-12-01 07:30)
DX: N81.4 Uterovaginal prolapse, unspecified (principal); N39.3 Stress incontinence (female) (male); N80.03 Adenomyosis of the uterus; N83.292 Other ovarian cyst, left side; N83.291 Other ovarian cyst, right side; E78.5 Hyperlipidemia, unspecified; Z80.0 Family history of malignant neoplasm of digestive organs
CPT/HCPCS: 58542; 57425; 57288; S2900 ×2; 88307; 99199; A9270; C1771; C1781; J0690; J1100; J1171; J1650; J1836; J1885; J2003; J2250; J2371; J2405; J2704; J3010; J3480; J7030; J7120; Q9968

== ENCOUNTER 2024-12-24 13:49 | Outpatient (CLI) | payer MEDICARE, OTHER, SELFPAY ==
--- NOTE | ~2024-12-24 | MM_ITS ---
EXAMINATION: MM screening [facility] w [facility] HISTORY: Screening TECHNIQUE: Craniocaudal and mediolateral oblique 3-D tomosynthesis images were obtained and synthetic 2-D images were generated. CAD analysis was submitted and interpreted. COMPARISON: Comparison to multiple prior studies sequentially, with oldest reviewed study dated 01/2019. BREAST PARENCHYMAL COMPOSITION: Not dense: There are scattered areas of fibroglandular density. FINDINGS: There is no evidence of suspicious mass, calcification, or architectural distortion to sugg est malignancy in either breast. There has been no suspicious interval change. IMPRESSION: 1. No mammographic evidence of malignancy. 2. Recommend routine screening mammography in one year. BI-RADS Category 1: Negative Reviewed, dictated and finalized at location A.
== END 2024-12-24 13:50 | disposition home or self-care (01) ==
LOC: MICIMG 13:50
PROVIDERS: PCP Internal Medicine; Visit Provider Obstetrics & Gynecology
DX: Z12.31 Encounter for screening mammogram for malignant neoplasm of breast (principal)
CPT/HCPCS: 77063; 77067